=== PATIENT | female | born 1970 | race African-American/Black ===

== ENCOUNTER 2016-11-29 15:11 | Inpatient (IN) ==
[2016-11-29] MEDS ORDERED: ASPIRIN 325 MG TABLET PO STA (15:36)
[2016-11-29] MEDS ORDERED: ENOXAPARIN 100 MG/ML SYRINGE SUBCUT STA (15:36)
--- NOTE | 2016-11-29 15:40 | EKG Report ---
Stationary ECG Study [facility] ER Test Date: 11/29/2016 3:26:07 PM Pat Name: WILMER MCCORMICK Department: Room: Gender: F Figure Clerk: : 1970 Requested by: Samson Kate Order Number: [id number] Reading MD: CHINYERE BROWN Intervals [place] Rate: 71 P: 36 [place]: 152 QRS: 13 QRSD: 97 T: 47 QT: 376 QTc: 398 Interpretive Statements SINUS RHYTHM Electronically Signed On 11-29-16 21:20:11 CDT by CHINYERE BROWN [id number]
--- NOTE | 2016-11-29 15:42 | Emergency Department Note ---
Josafat Steinberg Manpreet, am scribing for, and in the presence of, Samson Oseguera MD 15:40. Ana Rosa Steinberg Phillip K, MD, personally performed the services described in this documentation, ascribed by Armando Maurice in my presence, and it is both accurate and complete 542 . Arrival - Arrival ED Nursing Triage Note: c/o left sided chest pain onset 1415pm. Describes as sharp pain. +shortness of breath. +nausea. Also reports increased blood pressure. Mode of Arrival: Ambulatory Limitations: No Limitations Source: Patient - History of Present Illness Onset (ago): hour(s) Consistency: constant Severity: mild Date of Last Menstrual Period: hyst <Samson Oseguera - Last Filed: 11/29/16 15:42> <Kodak Rivera - Last Filed: 11/29/16 17:49> - Arrival Chief Complaint: Chest Pain Stated Complaint: CHEST PAIN, SOB. BP 170/106 - History of Present Illness HPI Narrative: Pt is a 45 y/o female who presents to the ED with CC of sharp CP onset at 1400 at work. Pt states the pain initially radiated into her left upper shoulder but does not currently. Pt also c/o nausea, dry cough, SOB, and the pain is worse upon movement. Pt had a heart catheterization in 2014 at [facility] which she does not know the results of. Pt has a PMHx of HTN and takes her medications at night. Pt has not taken her HTN medications today and has not taken a ASA today. Pt c/o chills and being cold but denies any fever. No other pains/ complaints reported to the ED. (Armando Maurice) Pt is a 45 y/o female who presents to the ED with CC of sharp CP onset at 1400 at work. Pt states the pain initially radiated into her left upper shoulder but does not currently. Pt also c/o nausea, dry cough, SOB, and the pain is worse upon movement. Pt had a heart catheterization in 2014 at [facility] which she does not know the results of. Pt has a PMHx of HTN and takes her medications at night. Pt has not taken her HTN medications today and has not taken a ASA today. Pt c/o chills and being cold but denies any fever. No other pains/ complaints reported to the ED. (Samson Oseguera) Allergies/Adverse Reactions: Allergies Allergy/AdvReac Type Severity Reaction Status Date / Time acetaminophen [From [place]] Allergy Unknown HIVES Verified 11/29/16 15:18 hydrocodone [From [place]] Allergy Unknown HIVES Verified 11/29/16 15:18 Penicillins Allergy Unknown HIVES Verified 11/29/16 15:18 Home Medications: Home Medications Medication Instructions Recorded Confirmed Type Ranitidine Tab [Zantac Tab] 150 mg PO BEDTIME 11/29/16 11/29/16 History Valsartan/Hctz 160-12.5 [Diovan 1 tablet PO BEDTIME 11/29/16 11/29/16 History Hct 160-12.5] Review of System - Review of System 12 point system: reviewed and no additional remarkable complaints except as stated - Review of System Constitutional: Present: chills. Absent: diaphoresis, fever Respiratory: Present: cough, respiratory distress. Absent: wheezing Cardiovascular: Present: chest pain Gastrointestinal: Present: nausea. Absent: abdominal pain, vomiting, diarrhea Musculoskeletal: Absent: arm pain, back pain Neurological: Absent: headache, numbness, paresthesias <Samson Oseguera - Last Filed: 11/29/16 15:42> Medical,Surgical,& Family Hx - Medical History Cardio: History of: Cardiac Dysrhythmia, Hypertension, Cardiovascular Problems Neurology: History of: Migraine Respiratory: History of: Pulmonary Hypertension Gastrointestinal: History of: Diverticulitis/ Diverticulosis, GERD - Surgical History Cardiac Surgeries: Sugical HX of: Cardiac Catheterization Abdominal Surgeries: Surgical HX of: Hernia Repair Reproductive Surgeries: Surgical HX of;: Hysterectomy (FULL) - Family History Family History: Reports;: Family Cancer (MOTHER-OVARIAN), Family Diabetes ( GRANDMOTHER), Family Hypertension (MOTHER), Family Stroke (FATHER) - Social History Smoking Status: Never smoker Frequency of Alcohol Use: None Type of Drug Use: None <Samson Oseguera - Last Filed: 11/29/16 15:42> Exam - General General appearance: alert, in no apparent distress - Head Head exam: Present: atraumatic, normocephalic, normal inspection - Eye Eye exam: Present: normal appearance, PERRL, EOMI - ENT ENT exam: Present: normal exam, normal oropharynx, mucous membranes moist, TM's normal bilaterally - Neck Neck exam: Present: normal inspection, full ROM, trachea midline - Chest Chest inspection: Present: normal inspection, symmetric chest wall rise, tenderness (Upper anterior Chest wall tenderness) - Respiratory Respiratory exam: Present: normal lung sounds bilaterally. Absent: accessory muscle use, respiratory distress - Cardiovascular Cardiovascular exam: Present: regular rate, normal rhythm, normal heart sounds. Absent: murmur, rubs, gallop - Abdominal Exam Abdominal exam: Present: soft, normal bowel sounds. Absent: distention - Extremities Exam Extremities exam: Present: normal inspection, full ROM. Absent: tenderness - Back Exam Back exam: Present: normal inspection, full ROM. Absent: tenderness - Neurological Exam Neurological exam: Present: alert, oriented X3, CN II-XII intact, reflexes normal - Psychiatric Psychiatric exam: Present: normal affect, normal mood - Skin Skin exam: Present: warm, dry, intact, normal color. Absent: pallor <Samson Oseguera - Last Filed: 11/29/16 15:42> Vital Signs: Vital Signs Temperature 98.7 F 11/29/16 15:31 Pulse Rate 83 11/29/16 15:31 Respiratory Rate 18 11/29/16 15:31 Blood Pressure 196/123 11/29/16 15:31 O2 Sat by Pulse Oximetry 99 11/29/16 15:15 Course <Samson Oseguera - Last Filed: 11/29/16 15:42> - Consultations Time: 17:44 <Kodak Rivera - Last Filed: 11/29/16 17:49> - Consultations Consultation #1: Hospitalist will admit patient (Kodak Rivera) Results - EKG EKG results: interpreted by MUNA NERI, sinus rhythm <Samson Oseguera - Last Filed: 11/29/16 15:42> - Labs CBC & BMP: 11/29/16 15:25 11/29/16 15:25 <Kodak Rivera - Last Filed: 11/29/16 17:49> Disposition <Samson Oseguera - Last Filed: 11/29/16 15:42> Case discussed with: patient, patient's family Time of Disposition: 17:49 <Kodak Rivera - Last Filed: 11/29/16 17:49> Clinical Impression: Chest pain, Atypical chest pain Disposition: Still a Patient Condition: Stable
[2016-11-29] MEDS ORDERED: ONDANSETRON 4 MG/2 ML VIAL IV STA (15:48)
[2016-11-29] MEDS ORDERED: ONDANSETRON 4 MG/2 ML VIAL ONE (15:49)
[2016-11-29] MEDS ORDERED: ENOXAPARIN 100 MG/ML SYRINGE SUBCUT ONE (15:49)
[2016-11-29] MEDS ORDERED: ASPIRIN 325 MG TABLET ONE (15:49)
[2016-11-29 15:51] LABS: Basophils % 0.4 % (0.0-0.8); Eosinophils # 0.1 10*3/uL (0.0-0.87); Eosinophils % 2.1 % (0.00-10.9); Hematocrit 39.5 VOL% (35.7-47.0); Hemoglobin 12.8 GM/DL (12.0-16.0); Immature Granulocytes % 0.3 %; Immature Granulocytes Absolute 0.02 #; Lymphocytes % 29.8 % (21.3-54.2); Mean Corpuscular HGB Conc 32.4 GM/DL (32-36); Mean Corpuscular Hemoglobin 27 PG (27-34); Mean Corpuscular Volume 82.3 FL (87-102); Mean Platelet Volume 10.4 FL (9.6-12.0); Monocytes # 0.4 10*3/uL (0.11-0.8); Neutrophils # 4.1 10*3/uL (1.4-7.4); Neutrophils % 61.4 % (38.7-73.9); Platelet Count 267 T/CUMM (130-400); Red Cell Distribution Width 14.6 % (9.3-17.3); White Blood Count 6.7 T/CUMM (4-12)
--- NOTE | 2016-11-29 16:05 | XRay Report ---
XR chest 1V portable Indication: Chest pain Comparison: 24 December 2015 Findings: The heart and mediastinum are normal in size and configuration. The pulmonary vascularity is normal in caliber. No lung infiltrates, effusions, pneumothorax or other abnormality is demonstrated. Impression: Normal chest x-ray PROCEDURE INTERPRETED AT [facility] DEPARTMENT OF RADIOLOGY Final Report Signed by: Dr. Alexys Lu
[2016-11-29 16:12] LABS: Alanine Aminotransferase 18 U/L (13-56); Albumin 3.9 G/DL (3.4-5.0); Alkaline Phosphatase 83 U/L (45-117); Aspartate Amino Transferase 12 U/L (0-37); Bilirubin,Total < 0.39 MG/DL (0.2-1.0); Blood Urea Nitrogen 13 MG/DL (7-18); Calcium 9.6 MG/DL (8.5-10.1); Glucose 96 MG/DL (74-106); Magnesium 2.3 MG/DL (1.8-2.4); Osmolality,Calculated 278.4 MOS/KG (273-304); Potassium 4.1 MMOL/L (3.5-5.1); Sodium 140 MMOL/L (136-145); Total Protein 7.6 G/DL (6.4-8.3)
[2016-11-29 18:05] LABS: Apearance,Urine CLEAR (Clear); Bilirubin,Urine Negative (Negative); Blood, Urine Small mg/dL (Negative); Glucose,Urine (UA) Negative (Negative); Ketones,Urine Negative (Negative); Mucus,Urine Occasional /LPF (Occasional); Nitrite,Urine Negative (Negative); Protein,Urine Negative; RBC,Urine 1 /HPF (0-4); Squamous Epithelial Cell,Urine Occasional /HPF (0-10); Urine Color Yellow (Yellow); Urine Specific Gravity 1.019 (1.001-1.035); Urine Urobilinogen < 2.0 EU/DL (0.2-1.0); WBC,Urine 1 /HPF (0-6)
[2016-11-29] MEDS ORDERED: ONDANSETRON 4 MG/2 ML VIAL IV PRN (18:13)
--- NOTE | 2016-11-29 18:24 | Hospitalist History & Physical ---
Assessment and Plan - Time spent with patient Time spent with patient: Greater than 30 minutes (1) Atypical chest pain Status: Acute Assessment and plan: Admit to monitored bed. Cardiac enzymes negative on admission. Trend troponin and EKGs. Supportive therapy. Consult cardiology. Current Visit: Yes (2) Pulmonary hypertension Status: Resolved Assessment and plan: Patient reports that she does have a history of pulmonary hypertension per heart catheterization in 2014. She notes that she has been instructed to undergo a right heart catheterization to further investigate this. She has not done so yet. Current Visit: No History of Present Illness Chief complaint: chest pain History of present illness: Ms. Alexander is a 45 year old -[place] female with a past medical history significant for hypertension, pulmonary hypertension and GERD who presents to the ED today with complaints of chest pain having onset today around 2 PM. Patient notes that she has been experiencing chest pain off and on for the last week with associated fatigue. She reports that today while sitting at her desk at work she began to have left-sided chest pain which she describes as "pins and needles" that progressed to a "grabbing sensation". Patient states that she checked her blood pressure with a wrist cuff and noticed that it was elevated. She then consulted the school nurse who checked her blood pressure manually and found it to be elevated with a systolic > 170. She was then transported to the [facility] ED. She noted that the pain had subsided on admission with 1 aspirin and Lovenox shot. She does confirm that, while walking to the bathroom to provide a urine sample, she did experience chest pressure again that radiates to her left arm and through to her left scapula. Patient denies headache, blurry vision, shortness of breath, nausea vomiting, numbness or tingling, lower extremity edema. Cardiac enzymes at this time are negative. Chest x-ray is negative. This case has been discussed with both Dr. Rivera, ER physician, as well as Dr. Dye, admitting physician, and the patient will be admitted to the hospital medicine service for further evaluation and treatment. CODE STATUS was discussed; patient is a full code. Home medications have been reviewed and reconciled. Home Medications Medication Instructions Recorded Confirmed Type Ranitidine Tab [Zantac Tab] 150 mg PO BEDTIME 11/29/16 11/29/16 History Valsartan/Hctz 160-12.5 [Diovan 1 tablet PO BEDTIME 11/29/16 11/29/16 History Hct 160-12.5] Allergies Allergy/AdvReac Type Severity Reaction Status Date / Time acetaminophen [From [place]] Allergy Unknown HIVES Verified 11/29/16 15:18 hydrocodone [From [place]] Allergy Unknown HIVES Verified 11/29/16 15:18 Penicillins Allergy Unknown HIVES Verified 11/29/16 15:18 Medical,Surgical,& Family Hx - Medical History Cardio: History of: Cardiac Dysrhythmia, Hypertension, Cardiovascular Problems Neurology: History of: Migraine Respiratory: History of: Pulmonary Hypertension Gastrointestinal: History of: Diverticulitis/ Diverticulosis, GERD - Surgical History Cardiac Surgeries: Sugical HX of: Cardiac Catheterization Abdominal Surgeries: Surgical HX of: Hernia Repair Reproductive Surgeries: Surgical HX of;: Hysterectomy (FULL) - Family History Family History: Reports;: Family Cancer (MOTHER-OVARIAN), Family Diabetes ( GRANDMOTHER), Family Hypertension (MOTHER), Family Stroke (FATHER) - Social History Smoking Status: Never smoker Frequency of Alcohol Use: None Type of Drug Use: None Marital Status: Single Lives With:: Children Functional capacity: independent ambulation 12 point system: reviewed and no additional remarkable complaints except as stated Exam - Constitutional Vitals: Period Temp Pulse Resp BP Sys/Sweeney Pulse Ox Last 24 Hr 98.7 F-98.7 F 73-88 16-18 129-196/85-123 97-100 Exam: General appearance: normal weight, no acute distress - Head Head exam: Present: normocephalic, atraumatic - Eye Eye exam: Present: EOMI. Absent: conjunctival injection, nystagmus Pupils: Present: IVET, normal accommodation - ENT ENT exam: Present: normal exam, normal external ear exam - Neck Neck exam: Present: normal inspection. Absent: lymphadenopathy, tenderness, thyromegaly - Respiratory Respiratory exam: Present: clear to auscultation bilaterally. Absent: rales, rhonchi, wheezes - Cardiovascular Cardiovascular exam: Present: regular rate and rhythm. Absent: carotid bruit, gallop, rubs - GI/Abdominal GI/Abdominal exam: Present: normal bowel sounds. Absent: ascites, distended, mass - Extremities Exam Extremities exam: Present: normal inspection, normal capillary refill. Absent: edema - Back Exam Back exam: Absent: CVA tenderness (L), CVA tenderness (R) - Neurological Exam Neurological exam: Present: alert, oriented X3, CN II-XII intact, reflexes normal - Psychiatric Psychiatric exam: Present: normal affect, normal mood - Skin Skin exam: Present: normal color, warm, dry Results - Labs CBC & BMP: 11/29/16 15:25 11/29/16 15:25 Lab Results: I have reviewed the past 24 hour labs - EKG EKG results: interpreted by ERMD - Diagnostic Findings Procedure: CT: image reviewed by me, report reviewed by me
[2016-11-29] MEDS: FAMOTIDINE 20 MG TABLET PO SCH (21:19)
[2016-11-29] MEDS: VALSARTAN/HCTZ 160-12.5 MG TABLET PO SCH (21:19)
--- NOTE | 2016-11-29 23:34 | EKG Report ---
Stationary ECG Study [facility] Test Date: 11/29/2016 11:32:37 PM Pat Name: WILMER MCCORMICK Department: Room: 540 Gender: F Manager City: [place] : 1970 Requested by: Samson Kate Order Number: [id number] Juan MD: GUANAKO PADRON Intervals [place] Rate: 70 P: 40 [place]: 151 QRS: 10 QRSD: 110 T: 43 QT: 404 QTc: 424 Interpretive Statements SINUS RHYTHM Electronically Signed On 11-30-16 10:37:17 CDT by GUANAKO PADRON [email or web address]
[2016-11-30] MEDS ORDERED: MORPHINE 2 MG/1 ML SYRINGE IV ONE (00:07)
[2016-11-30 06:19] LABS: Basophils % 0.4 % (0.0-0.8); Eosinophils # 0.1 10*3/uL (0.0-0.87); Eosinophils % 2.5 % (0.00-10.9); Hematocrit 37.4 VOL% (35.7-47.0); Hemoglobin 12.1 GM/DL (12.0-16.0); Immature Granulocytes % 0.2 %; Immature Granulocytes Absolute 0.01 #; Lymphocytes % 42.3 % (21.3-54.2); Mean Corpuscular HGB Conc 32.4 GM/DL (32-36); Mean Corpuscular Hemoglobin 27 PG (27-34); Mean Corpuscular Volume 82.6 FL (87-102); Mean Platelet Volume 10.7 FL (9.6-12.0); Monocytes # 0.4 10*3/uL (0.11-0.8); Monocytes % 7.4 % (1.7-12.7); Neutrophils # 2.2 10*3/uL (1.4-7.4); Neutrophils % 47.2 % (38.7-73.9); Platelet Count 229 T/CUMM (130-400); Red Blood Count 4.53 MC/CUMM (3.8-5.5); Red Cell Distribution Width 14.6 % (9.3-17.3); White Blood Count 4.7 T/CUMM (4-12)
--- NOTE | 2016-11-30 06:33 | EKG Report ---
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
[2016-11-30 06:59] LABS: Calcium 8.9 MG/DL (8.5-10.1); Osmolality,Calculated 279.3 MOS/KG (273-304)
[2016-11-30 07:03] LABS: Cholesterol 198 MG/DL (50-200); HDL Cholesterol 61 MG/DL (40-60); Risk Ratio 3.25; Triglycerides 48 MG/DL (2-150); Troponin I Only < 0.015 NG/ML (0.00-0.045); VLDL CHOLESTEROL 9.6 MG/DL
[2016-11-30] MEDS: PANTOPRAZOLE 40 MG TABLET PO SCH ×2 (07:55→08:05)
--- NOTE | 2016-11-30 08:31 | EKG Report ---
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
[2016-11-30] MEDS: ASPIRIN CHEW 81 MG TABLET PO SCH (11:11)
[2016-11-30] MEDS: amLODIPine 5 MG TABLET PO SCH (11:11)
--- NOTE | 2016-11-30 13:12 | EKG Report ---
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
--- NOTE | 2016-11-30 13:29 | Cardiology Consult Note ---
Sobia Steinberg April RN, am scribing for, and in the presence of, Jose Lanza MD 13:29. Assessment and Plan - Time spent with patient Time spent with patient: Greater than 30 minutes (Due to assessment, planning, documentation, medication review) (1) Chest pain Status: Acute Assessment and plan: EKG has been stable and troponins are negative. We will schedule her for left and right heart cath tomorrow to look at her coronaries as well as to assess her pulmonary pressures Current Visit: Yes (2) Pulmonary hypertension Status: Chronic Assessment and plan: She has been told she has pulmonary hypertension in the past. We will schedule for left and right heart cath tomorrow. Current Visit: Yes (3) HTN (hypertension) Status: Acute Assessment and plan: Her home medication of Diovan HCT has been continued. We will add Norvasc 5 mg daily. Will continue to monitor her blood pressures. Current Visit: Yes History of Present Illness - Data of Consult Patient: known to practice within the last 3 years Consult date: 11/29/16 Requesting Physician: Manny Aguilar - Consult Narrative Reason for consult: Chest pain History of present illness: Innersole Maker: Dr. Grande at [facility], she has seen Dr. Henriquez for a second opinion Ms. Alexander is a 45 year old female with a history of pulmonary hypertension, sinus tachycardia, reflux, and hernia. Dr. Henriquez's note in 2016 indicates that she had a left and right heart catheterization on December 14, [address] Grande. It showed a pulmonary artery pressure of 35/16 mmHg. All of her coronary arteries were reported as normal at that time. She had a stress test done July 29, 2015 that was clinically and electrically negative. Echocardiogram done July 28, 2015 with ejection fraction of 60%. Other surgeries include hysterectomy, sinus, left knee, and umbilical hernia repair. Family history is positive for mother with heart disease hypertension and cancer , father with stroke and hypertension, and sister with hypertension. She reports she is a lifetime non-smoker. Ms. Alexander has been short of breath that gets worse with exertion and fatigue for the last week. Yesterday she developed pain in her left chest that radiated in her left arm. She described as a tightness but also felt like " pins and needles". This came on at rest and she rates a 9 on a scale of 1-10. She noted no triggers or alleviators. Her blood pressure was noted to be elevated at 170/100. She presented to the emergency department for further evaluation. At that time her pain was relieved. She had a wart on the mcdaniels to give a urine sample and her pain did return. Her blood pressure was elevated on admission at 196/123. Troponin has been negative 3. EKG on admission showed sinus rhythm with heart rate of 71, no indication of acute MD. Chest x- ray was read as normal. This morning she is resting in bed. She continues to have the chest pain she rates it a 7 on a scale of 1-10. The pain is reproducible to palpation. She is also complaining of some dizziness. EKG this morning showed sinus rhythm with heart rate of 63, no acute changes. We will obtain an echocardiogram. We will also start her on a baby aspirin daily and add Norvasc 5 mg daily to her medication regimen. I have discussed in detail the particulars of this case and I have examined the patient and reviewed the patient's chart both current and old. I was directly involved in the patient's evaluation and management and I completely agree with Ann Marie Ramsay RN regarding this patient's evaluation and treatment plan. CC: Cass aHrvey MD - Home Medications and Allergies Home Medications: Home Medications Medication Instructions Recorded Confirmed Type Ranitidine Tab [Zantac Tab] 150 mg PO BEDTIME 11/29/16 11/29/16 History Valsartan/Hctz 160-12.5 [Diovan 1 tablet PO BEDTIME 11/29/16 11/29/16 History Hct 160-12.5] Allergies/Adverse Reactions: Allergies Allergy/AdvReac Type Severity Reaction Status Date / Time acetaminophen [From [place]] Allergy Unknown HIVES Verified 11/29/16 15:18 hydrocodone [From [place]] Allergy Unknown HIVES Verified 11/29/16 15:18 Penicillins Allergy Unknown HIVES Verified 11/29/16 15:18 - Constitutional Constitutional: Present: as per HPI - EENT Eyes: Present: blurry vision, requires corrective lense Ears: Present: tinnitus. Absent: decreased hearing, ear pain Nose, mouth and throat: Present: headache(s), neck pain. Absent: dysphagia, epistaxis - Cardiovascular Cardiovascular: Present: chest pain at rest, chest pain with activity, dyspnea, dyspnea on exertion, radiating jaw, neck or arm pain, lightheadedness, palpitations. Absent: edema, orthopnea - Respiratory Respiratory: Present: cough, dyspnea, dyspnea on exertion. Absent: hemoptysis, wheezing - Gastrointestinal Gastrointestinal: Present: nausea, vomiting. Absent: abdominal pain, constipation, diarrhea, hematemesis, hematochezia, melena - Genitourinary Genitourinary: Absent: dysuria, hematuria - Musculoskeletal Musculoskeletal: Absent: back pain, limited range of motion - Neurological Neurological: Present: dizziness, headache(s). Absent: confusion, frequent falls, syncope - Psychiatric Psychiatric: Absent: anxiety, depression - Endocrine Endocrine: Present: fatigue - Hematologic/Lymphatic Hematologic/Lymphatic: Absent: easy bleeding, easy bruising Medical,Surgical,& Family Hx - Medical History Cardio: History of: Cardiac Dysrhythmia, Hypertension Neurology: History of: Migraine Respiratory: History of: Pulmonary Hypertension Gastrointestinal: History of: Diverticulitis/ Diverticulosis, GERD - Surgical History Cardiac Surgeries: Sugical HX of: Cardiac Catheterization Abdominal Surgeries: Surgical HX of: Hernia Repair Reproductive Surgeries: Surgical HX of;: Hysterectomy (FULL) Orthopedic Surgeries: Surgical HX of;: Orthopedic Surgery (left knee surgery) Additional Surgical History: Sinus - Family History Family History: Reports;: Family Cancer (MOTHER-OVARIAN), Family Heart Disease ( Mother), Family Hypertension (MOTHER, father, sister), Family Stroke (FATHER) - Social History Smoking Status: Never smoker Have you smoked in the last 12 months: No Frequency of Alcohol Use: None Type of Drug Use: None Functional capacity: independent ambulation Physical Examination Vital Signs Temp Pulse Resp BP Pulse Ox 98.7 F 83 18 196/123 99 11/29/16 15:15 11/29/16 15:15 11/29/16 15:15 11/29/16 15:15 11/29/16 15:15 General: Present: Appears Well, No Apparent Distress HEENT: Present: PERRL, Mucus Membranes Moist Neck: Present: Supple Neck, Midline Trachea, No Bruit Cardiac: Present: Reg Rate and Rhythm, No Murmur Lungs: Present: Normal Breath Sounds, No Wheeze, Rales, Rhonchi Neuro: Absent: Resting Tremor, Essential Tremor Abdomen: Present: Soft, Active Bowel Sounds, Non-Tender. Absent: Distended Skin: Absent: Rash, Suspicious Lesions Musculoskeletal: Present: No Pain, Normal Range of Motion Extremities: Present: No Edema, Normal Upper Extr. Pulses, Normal Lower Extr. Pulses Result/EKG - Labs CBC & BMP: 11/30/16 05:17 11/30/16 05:17 Lab Results: I have reviewed the past 24 hour labs Labs: Laboratory Results - last 24 hr 11/29/16 11/29/16 11/29/16 15:25 15:25 15:25 WBC 6.7 RBC 4.80 Hgb 12.8 Hct 39.5 MCV 82.3 L MCH 27 MCHC 32.4 RDW 14.6 Plt Count 267 MPV 10.4 Neut % (Auto) 61.4 Lymph % (Auto) 29.8 [place] % (Auto) 6.0 Eos % (Auto) 2.1 Baso % (Auto) 0.4 Neut # (Auto) 4.1 Lymph # (Auto) 2.0 [place] # (Auto) 0.4 Eos # (Auto) 0.1 Baso # (Auto) 0.0 Immature Gran % 0.3 Nucleated RBC % 0.0 Immature Gran # 0.02 Nucleated RBCs # 0.00 Immature Plt Fraction 0.0 Sodium 140 Potassium 4.1 Chloride 105 Carbon Dioxide 32 Anion Gap 7.1 BUN 13 Creatinine 1.00 GFR Calculation 94 BUN/Creatinine Ratio 13.00 Glucose 96 Calculated Osmolality 278.4 Calcium 9.6 Magnesium 2.3 Total Bilirubin < 0.39 AST 12 ALT 18 Alkaline Phosphatase 83 Troponin I < 0.015 Total Protein 7.6 Albumin 3.9 Globulin 3.7 H Albumin/Globulin Ratio 1.0 L Triglycerides Cholesterol LDL Cholesterol VLDL Cholesterol HDL Cholesterol Heart Disease Risk Ratio Free T4 TSH 3rd Generation Urine Color Urine Appearance Urine pH Ur Specific [place] Urine Protein Urine Glucose (UA) Urine Ketones Urine Blood Urine Nitrate Urine Bilirubin Urine Urobilinogen Urine Leukocytes Urine RBC Urine WBC Ur Squamous Epith Cells Urine Mucus Ur Culture Indicated? 11/29/16 11/29/16 11/29/16 15:25 15:25 17:49 WBC RBC Hgb Hct MCV MCH MCHC RDW Plt Count MPV Neut % (Auto) Lymph % (Auto) [place] % (Auto) Eos % (Auto) Baso % (Auto) Neut # (Auto) Lymph # (Auto) [place] # (Auto) Eos # (Auto) Baso # (Auto) Immature Gran % Nucleated RBC % Immature Gran # Nucleated RBCs # Immature Plt Fraction Sodium Potassium Chloride Carbon Dioxide Anion Gap BUN Creatinine GFR Calculation BUN/Creatinine Ratio Glucose Calculated Osmolality Calcium Magnesium Total Bilirubin AST ALT Alkaline Phosphatase Troponin I Total Protein Albumin Globulin Albumin/Globulin Ratio Triglycerides Cholesterol LDL Cholesterol VLDL Cholesterol HDL Cholesterol Heart Disease Risk Ratio Free T4 1.23 TSH 3rd Generation 0.713 Urine Color Yellow Urine Appearance Clear Urine pH 5.0 Ur Specific [place] 1.019 Urine Protein Negative Urine Glucose (UA) Negative Urine Ketones Negative Urine Blood Small Urine Nitrate Negative Urine Bilirubin Negative Urine Urobilinogen < 2.0 H Urine Leukocytes Negative Urine RBC 1 Urine WBC 1 Ur Squamous Epith Cells Occasional Urine Mucus Occasional Ur Culture Indicated? Not indicated 11/29/16 11/30/16 11/30/16 21:27 05:17 05:17 WBC 4.7 RBC 4.53 Hgb 12.1 Hct 37.4 MCV 82.6 L MCH 27 MCHC 32.4 RDW 14.6 Plt Count 229 MPV 10.7 Neut % (Auto) 47.2 Lymph % (Auto) 42.3 [place] % (Auto) 7.4 Eos % (Auto) 2.5 Baso % (Auto) 0.4 Neut # (Auto) 2.2 Lymph # (Auto) 2.0 [place] # (Auto) 0.4 Eos # (Auto) 0.1 Baso # (Auto) 0.0 Immature Gran % 0.2 Nucleated RBC % 0.0 Immature Gran # 0.01 Nucleated RBCs # 0.00 Immature Plt Fraction 0.0 Sodium 141 Potassium 4.0 Chloride 105 Carbon Dioxide 30 Anion Gap 10.0 BUN 12 Creatinine 0.90 GFR Calculation 107 BUN/Creatinine Ratio 13.00 Glucose 87 Calculated Osmolality 279.3 Calcium 8.9 Magnesium Total Bilirubin AST ALT Alkaline Phosphatase Troponin I < 0.015 Total Protein Albumin Globulin Albumin/Globulin Ratio Triglycerides Cholesterol LDL Cholesterol VLDL Cholesterol HDL Cholesterol Heart Disease Risk Ratio Free T4 TSH 3rd Generation Urine Color Urine Appearance Urine pH Ur Specific [place] Urine Protein Urine Glucose (UA) Urine Ketones Urine Blood Urine Nitrate Urine Bilirubin Urine Urobilinogen Urine Leukocytes Urine RBC Urine WBC Ur Squamous Epith Cells Urine Mucus Ur Culture Indicated? 11/30/16 05:17 WBC RBC Hgb Hct MCV MCH MCHC RDW Plt Count MPV Neut % (Auto) Lymph % (Auto) [place] % (Auto) Eos % (Auto) Baso % (Auto) Neut # (Auto) Lymph # (Auto) [place] # (Auto) Eos # (Auto) Baso # (Auto) Immature Gran % Nucleated RBC % Immature Gran # Nucleated RBCs # Immature Plt Fraction Sodium Potassium Chloride Carbon Dioxide Anion Gap BUN Creatinine GFR Calculation BUN/Creatinine Ratio Glucose Calculated Osmolality Calcium Magnesium Total Bilirubin AST ALT Alkaline Phosphatase Troponin I < 0.015 Total Protein Albumin Globulin Albumin/Globulin Ratio Triglycerides 48 Cholesterol 198 LDL Cholesterol 130.0 VLDL Cholesterol 9.6 HDL Cholesterol 61 H Heart Disease Risk Ratio 3.25 Free T4 TSH 3rd Generation Urine Color Urine Appearance Urine pH Ur Specific [place] Urine Protein Urine Glucose (UA) Urine Ketones Urine Blood Urine Nitrate Urine Bilirubin Urine Urobilinogen Urine Leukocytes Urine RBC Urine WBC Ur Squamous Epith Cells Urine Mucus Ur Culture Indicated? - Diagnostic Findings Procedure: Chest x-ray: report reviewed by me - EKG EKG results: interpreted by me EKG shows: sinus rhythm Pool Steinberg Wesley, MD, personally performed the services described in this documentation, ascribed by Ann Marie Ramsay RN in my presence, and it is both accurate and complete [id number] .
--- NOTE | 2016-11-30 16:48 | Hospitalist Progress Note ---
Hospitalist: Subjective Interval history: Patient reports that her symptoms usually come on on exertion mostly shortness of breath and sometimes chest discomfort. Exam - Constitutional Vitals: Period Temp Pulse Resp BP Sys/Sweeney Pulse Ox Last 24 Hr 97.3 F-98.4 F 65-94 16-20 104-169/65-111 93-98 Exam: General: [No Acute Distress] HEENT: [Normocephalic, atraumatic, Extra ocular movements intact] Neck: [Supple, No JVD] Chest: [Clear to auscultation B/L] CV: [S1 + S2 audible without murmur, gallop or rub] Abd: [soft, NT, Non-distended, BS +] Ext: [No edema] Skin: [No purpura, bruising or rash] Rheumatologic: [No Joint deformities] Neurologic: [Awake and alert] Results - Labs CBC & BMP: 11/30/16 05:17 11/30/16 05:17 - Impressions Assessment and Plan: Chest pain/pulmonary hypertension Status: Acute Assessment and plan: Patient is going for a right and left heart catheterization in the morning. Cardiac enzymes have been negative. Current Visit: Yes
[2016-11-30] MEDS: FAMOTIDINE 20 MG TABLET PO SCH (21:44)
[2016-11-30] MEDS: VALSARTAN/HCTZ 160-12.5 MG TABLET PO SCH (21:44)
[2016-11-30] MEDS: MORPHINE 2 MG/1 ML SYRINGE IV PRN (22:15)
[2016-12-01 05:27] LABS: Basophils % 0.5 % (0.0-0.8); Eosinophils # 0.1 10*3/uL (0.0-0.87); Eosinophils % 2.3 % (0.00-10.9); Hematocrit 40.1 VOL% (35.7-47.0); Hemoglobin 13.1 GM/DL (12.0-16.0); Immature Granulocytes % 0.2 %; Immature Granulocytes Absolute 0.01 #; Lymphocytes # 2.4 10*3/uL (1.4-4.0); Lymphocytes % 39.3 % (21.3-54.2); Mean Corpuscular HGB Conc 32.7 GM/DL (32-36); Mean Corpuscular Hemoglobin 27 PG (27-34); Mean Corpuscular Volume 81.7 FL (87-102); Mean Platelet Volume 10.8 FL (9.6-12.0); Monocytes # 0.5 10*3/uL (0.11-0.8); Monocytes % 7.9 % (1.7-12.7); Neutrophils % 49.8 % (38.7-73.9); Platelet Count 256 T/CUMM (130-400); Red Blood Count 4.91 MC/CUMM (3.8-5.5); Red Cell Distribution Width 14.4 % (9.3-17.3)
[2016-12-01 06:29] LABS: Calcium 9.5 MG/DL (8.5-10.1); Osmolality,Calculated 278.5 MOS/KG (273-304); Potassium 4.6 MMOL/L (3.5-5.1)
[2016-12-01] MEDS ORDERED: DIAZEPAM 5 MG TABLET PO ONE (07:10)
[2016-12-01] MEDS ORDERED: diphenhydrAMINE CAP 50 MG CAPSULE PO ONE (07:11)
[2016-12-01] MEDS: amLODIPine 5 MG TABLET PO SCH ×2 (07:31→08:31)
[2016-12-01] MEDS: ASPIRIN CHEW 81 MG TABLET PO SCH ×2 (07:31→08:31)
[2016-12-01] MEDS ORDERED: MIDAZOLAM 2 MG/2 ML VIAL ONE (07:48)
[2016-12-01] MEDS ORDERED: fentaNYL 100 MCG/2 ML VIAL ONE (07:48)
[2016-12-01] MEDS: PANTOPRAZOLE 40 MG TABLET PO SCH (08:31)
--- NOTE | 2016-12-01 09:03 | Cardiac Catheterization ---
Date of Procedure:: 12/01/16 Pre-op Diagnosis: Patient with palpitations chest discomfort history of questionable portal hypertension for right and left heart catheterization and intervention if indicated Post-op diagnosis: same Procedure: Procedures performed: Right heart catheterization Oxygen saturation measurements Cardiac output by thermodilution technique Left heart catheterization Coronary arteriography Left ventriculography Femoral sheath angiography After obtaining informed consent the patient was brought to the [facility] with a right groin was prepped and draped in the usual sterile manner. Using intravenous sedation and local anesthesia a needle was inserted into the right femoral artery and a 6 [place] sheath was placed without difficulty. A separate needle stick was made to the right femoral vein and a 7 [place] sheath was placed without difficulty. A [place]Vicente catheter was advanced under fluoroscopy to the superior vena cava where oxygen saturation measurements were obtained. This catheter then was positioned using balloon flow to the main pulmonary artery. Oxygen saturations again were obtained with the catheter tip in the main pulmonary artery. This catheter then was connected to hemodynamic monitoring and pressures were measured in the pulmonary capillary wedge position and in the main pulmonary artery. Cardiac outputs were then obtained using the thermodilution technique. After completion of cardiac output measurements, the catheter was pulled back from the main pulmonary artery into the right ventricle where right ventricular pressures were measured. This catheter then was pulled back into the right atrium where pressures were measured and then this catheter was removed. A Kirk left coronary catheter was advanced over a guidewire through the arterial sheath to the ascending aorta under fluoroscopy. The left main coronary artery was engaged and multiple angiograms of the left coronary was undertaken in multiple views. After adequate angiograms of the left coronary were obtained this catheter was withdrawn and an AMRM right coronary catheter was advanced over a guidewire under fluoroscopic control the ascending aorta where angiography of the right coronary artery was undertaken in multiple views. After adequate angiograms of the right coronary artery were obtained this catheter was withdrawn and a pigtail ventriculographic catheter was advanced over a guidewire to fluoroscopic control to the ascending aorta where it was then passed across the aortic valve where intraventricular hemodynamics were measured. A ventriculogram was undertaken at this point in the CORREA projection. After completion of ventriculography this catheter was pulled back from the ventricle to the aorta under hemodynamic monitoring and removed. At this point patient underwent femoral sheath angiography which demonstrated anatomy appropriate for [Mynx closure]. Good hemostasis was obtained and the patient was transferred back to the [facility] having suffered no significant immediate complications. Hemodynamics: Please see the accompanying hemodynamic data sheet. PA pressures were 32/11 with a mean of 17. Wedge pressures were 8 mmHg. Right atrial pressures were 3. Cardiac output measured 5.8 L/min. No significant oxygen saturation step up from SVC to pulmonary artery was noted. Coronary arteriography: Left coronary artery: The left main coronary artery is well-developed and free of significant obstructing lesions. The circumflex coronary is a large nondominant vessel that possesses no significant lesions to its course. The branches of the circumflex likewise are free of significant obstructing lesions. The left anterior descending coronary artery is a very large vessel that extends around the apex of the ventricle. The LAD possesses no significant lesions throughout its course. There is a proximal diagonal branch which is a large and free of significant obstructing lesions. The LAD and its remaining branches are free of significant obstructing lesions. Right coronary artery: The right coronary artery is large vessel that is dominant and is free of significant obstructing lesions. The PDA and posterolateral branches likewise are free of significant obstructing lesions. Left ventriculography: After injection of contrast left ventricle is noted normal size with normal contractility. Mitral and aortic structures are noted to be free of significant abnormality by ventriculography. Right femoral sheath angiography: After injection of contrast in the right femoral arterial sheath it is noted be of normal caliber and enters above the bifurcation. The distal iliac, common femoral and bifurcation appear to be free of significant obstructing lesions based on this limited angiographic study. Conclusions: Angiographically no evidence of significant fixed coronary obstruction. Normal left ventricular size and function. Only very minimally elevated resting right-sided pressures Normal end-diastolic pressures at rest Mynx closure right femoral arteriotomy site Discussion and recommendations: the patient presents with chest discomfort. She has now undergone evaluation demonstrating no evidence of significant fixed coronary obstruction. Her PA pressures are minimally elevated. She'll continue risk factor modification and our plan will be to evaluate for other etiologies of the patient's discomfort. Findings have been reviewed with the patient's family. Surgeon / Physician: Jose Lanza - Medications / Follow-up
[2016-12-01] MEDS ORDERED: SODIUM CHLORIDE 0.45% 1,000 ML IV SCH (09:30)
[2016-12-01] MEDS ORDERED: LIDOCAINE 1%/EPI INJ 20 ML VIAL ONE (10:18)
[2016-12-01] MEDS ORDERED: HEPARIN/NACL 0.9% 2 UNITS/ML 1,000 ML IV ONE (10:18)
[2016-12-01] MEDS: traMADol 50 MG TABLET PO PRN ×2 (10:47→16:26)
--- NOTE | 2016-12-01 16:19 | Hospitalist Progress Note ---
Hospitalist: Subjective Interval history: Patient was admitted with chest pain she is status post heart cath. Denies any chest pain or shortness of breath today Exam - Constitutional Vitals: Period Temp Pulse Resp BP Sys/Sweeney Pulse Ox Last 24 Hr 97.6 F-98.7 F 68-96 18-20 102-142/64-92 92-100 Exam: General: [No Acute Distress] HEENT: [Normocephalic, atraumatic, Extra ocular movements intact] Neck: [Supple, No JVD] Chest: [Clear to auscultation B/L] CV: [S1 + S2 audible without murmur, gallop or rub] Abd: [soft, NT, Non-distended, BS +] Ext: [No edema] Skin: [No purpura, bruising or rash] Rheumatologic: [No Joint deformities] Neurologic: [Awake and alert] Results - Labs CBC & BMP: 12/01/16 04:51 12/01/16 04:51 - Impressions Assessment and Plan: Chest pain Status: Acute Assessment and plan: She had atypical chest pain, patient had a right and left heart catheterization did not show any gross abnormalities. Discharge plan to home in the morning. Current Visit: Yes Quality Measures - VTE Contraindication to Pharmacological VTE Prophylaxis: High Risk of Bleeding Specialty Discharge - Follow Up or Referrals Follow up with: Jose Lanza MD [Physician] - 2 Weeks (for leg check up )
--- NOTE | 2016-12-01 17:04 | ECHO Report ---
Yessenia Alexander Exam Date: 11/30/2016 09:39 Referring Physician: Technologist: Dara Presley Age: 45 Ht (in): 67 Wt (lb): 214 Gender: F Exam Location: [facility] Echo Indications: Chest pain, pulmonary HTN, HTN, GERD BP: 118 / 70 HR: 74 Rhythm: Sinus Technical Quality: Good IMPRESSIONS Normal left ventricular cavity size. Mild - moderate concentric left ventricular hypertrophy. Grade I/IV diastolic dysfunction (abnormal relaxation filling pattern), normal to mildly elevated filling pressures. Normal right ventricular size. Normal right atrial size. Moderately increased left atrial size. Morphologically normal mitral valve. The aortic valve is trileaflet and has normal motion. Morphologically normal tricuspid valve. Trace tricuspid valve regurgitation. Morphologically normal pulmonic valve. Trace pulmonary valve regurgitation. No pericardial effusion. Normal size aortic root and proximal ascending aorta. MEASUREMENTS (Male / Female) Normal Values 2D ECHO LV Diastolic Diameter PLAX 3.3 cm 4.2 - 5.9 / 3.9 - 5.3 cm LV Systolic Diameter PLAX 1.8 cm LV Fractional Shortening PLAX 44.3 % IVS Diastolic Thickness 1.7 cm 0.6 - 1.0 / 0.6 - 0.9 cm LVPW Diastolic Thickness 1.2 cm 0.6 - 1.0 / 0.6 - 0.9 cm Aortic Root Diameter 3.2 cm LA Systolic Diameter LX 3.4 cm 3.0 - 4.0 / 2.7 - 3.8 cm DOPPLER TR Peak Velocity 228.0 cm/s TR Peak Gradient 20.8 mmHg FINDINGS Left Ventricle Normal left ventricular cavity size. Mild - moderate concentric left ventricular hypertrophy. Grade I/IV diastolic dysfunction (abnormal relaxation filling pattern), normal to mildly elevated filling pressures. Left ventricular ejection fraction is estimated at 55-60% Right Ventricle Normal right ventricular size. Right Atrium Normal right atrial size. Left Atrium Moderately increased left atrial size. Mitral Valve Morphologically normal mitral valve. Aortic Valve The aortic valve is trileaflet and has normal motion. Tricuspid Valve Morphologically normal tricuspid valve. Trace tricuspid valve regurgitation. Pulmonic Valve Morphologically normal pulmonic valve. Trace pulmonary valve regurgitation. Pericardium No pericardial effusion. Aorta Normal size aortic root and proximal ascending aorta. Jose Lanza MD (Electronically Signed) Final Date: 01 December 2016 17:03
[2016-12-01] MEDS: MORPHINE 2 MG/1 ML SYRINGE IV PRN (17:18)
[2016-12-01] MEDS: FAMOTIDINE 20 MG TABLET PO SCH (20:25)
[2016-12-01] MEDS: VALSARTAN/HCTZ 160-12.5 MG TABLET PO SCH (20:25)
--- NOTE | 2016-12-02 08:29 | Cardiology Progress Note ---
Assessment and Plan (1) Chest pain Status: Acute Assessment and plan: EKG has been stable and troponins are negative. We will schedule her for left and right heart cath tomorrow to look at her coronaries as well as to assess her pulmonary pressures 12/02: Patient is stable post catheterization. She can be discharged to follow- up with me in 2 weeks. Current Visit: Yes (2) Pulmonary hypertension Status: Chronic Assessment and plan: She has been told she has pulmonary hypertension in the past. We will schedule for left and right heart cath tomorrow. Current Visit: Yes (3) HTN (hypertension) Status: Acute Assessment and plan: Her home medication of Diovan HCT has been continued. We will add Norvasc 5 mg daily. Will continue to monitor her blood pressures. Current Visit: Yes Cardiology - PN: Subj Interval history: Patient is stable post catheterization. Doing well. She had mildly elevated's pulmonary arterial pressures without evidence of significant occlusive coronary disease normal LV function. I think she is without significant structural heart disease and our plan will be to have the patient back to see me in 2 weeks to review review her cath site. We will discuss at that point whether she is having significant palpitations to the point we will order further rhythm surveillance. Exam (Progress Note) - Constitutional Vitals: Period Temp Pulse Resp BP Sys/Sweeney Pulse Ox Last 24 Hr 97.6 F-98.7 F 68-81 18-20 99-142/51-92 92-100 Exam: General:no acute distress. alert and oriented, mood and affect are normal HEENT: no new lesions, sclerae are clear, mouth and pharynx benign Neck: supple, trachea midline, no JVD noted Lungs: no rales ronchi or wheeze is noted. pt comfortable without accesory muscle use to assist with breathing CV: RRR no murmur rub or gallop is noted. Abd: soft and nontender, BSNA, no masses. Ext: no cyanosis, clubbing or edema Neuro: grossly intact without focal neurologic deficit. Result/EKG - Labs CBC & BMP: 12/01/16 04:51 12/01/16 04:51 Quality Measures - VTE Contraindication to Pharmacological VTE Prophylaxis: High Risk of Bleeding Specialty Discharge - Follow Up or Referrals Follow up with: Jose Lanza MD [Physician] - 2 Weeks (for leg check up )
[2016-12-02] MEDS: amLODIPine 5 MG TABLET PO SCH (08:39)
[2016-12-02] MEDS: ASPIRIN CHEW 81 MG TABLET PO SCH (08:39)
[2016-12-02] MEDS: PANTOPRAZOLE 40 MG TABLET PO SCH (08:39)
--- NOTE | 2016-12-02 13:06 | Discharge Summary ---
<Alon Agarwal - Last Filed: 12/02/16 13:03> Hospital Course - Hospital Course Hospital Course: 45-year-old -Italian female who presented to the ED on 11/29/2016 with complaints of left-sided chest pain. Patient was seen in the ED with stable EKG and negative troponins. Given patient's history she was admitted to the hospital medicine service for further evaluation and treatment. Cardiology was consulted and decided to proceed with a left heart catheterization with evaluation of pulmonary pressures. She had mildly elevated pulmonary arterial pressures without evidence of significant occlusive coronary disease and normal LV function. Cardiology did not find any significant structural heart disease. During her stay, the patient was continued on Diovan HCT with the addition of Norvasc 5 mg daily. She has responded appropriately to medication and is now stable for discharge at this time. Patient to follow-up with Dr. Lanza in 2 weeks post left and right heart catheterization. She should follow with her primary care physician in 1-2 weeks. Specialty Discharge - Follow Up or Referrals Follow up with: Jose Lanza MD [Physician] - 2 Weeks (for leg check up ) Discharge Plan - Discharge Data Disposition: Disch To Home/Self Care Condition at Discharge: Stable Discharge Diet: heart healthy Activity: resume usual activities as tolerated Hygiene: no restrictions Weight Bearing at Discharge: full weight bearing Driving: no restrictions Contact your physician if you experience:: fever over 101, Redness or swelling, Shortness of breath, Bleeding - Discharge Medications New amLODIPine [Norvasc] 5 mg PO DAILY #30 tablet Continue Ranitidine Tab [Zantac Tab] 150 mg PO BEDTIME Valsartan/Hctz 160-12.5 [Diovan Hct 160-12.5] 1 tablet PO BEDTIME - Follow Up or Referral Follow Up: Jose Lanza MD [Physician] - 2 Weeks (for leg check up ) - Forms/Instructions Instructions: Heart Healthy Diet (GEN), Coronary Artery Disease in Women (GEN) Exam - Constitutional Vitals: Period Temp Pulse Resp BP Sys/Sweeney Pulse Ox Last 24 Hr 97.5 F-98.4 F 71-83 18-20 99-120/51-66 92-98 General appearance: over weight - Head Head exam: Present: normocephalic, atraumatic - Eye Eye exam: Present: EOMI Pupils: Present: IVET - ENT ENT exam: Present: normal exam - Neck Neck exam: Present: normal inspection - Respiratory Respiratory exam: Present: clear to auscultation bilaterally - Cardiovascular Cardiovascular exam: Present: regular rate and rhythm - GI/Abdominal GI/Abdominal exam: Present: normal bowel sounds, soft - Extremities Exam Extremities exam: Present: normal inspection, normal capillary refill, full ROM - Neurological Exam Neurological exam: Present: alert, oriented X3, CN II-XII intact - Psychiatric Psychiatric exam: Present: normal affect, normal mood - Skin Skin exam: Present: normal color, warm, dry Discharge Results Procedures and tests throughout hospitalization: Pending Orders 12/01/16 08:30 CL heart Routine DS: Provider Date of admission: 11/29/16 18:13 Primary care physician: Blake Benavidez MD Attending physician on admission: Sudeep Dye MD Consults: 11/29/16 18:49 Consult to Physician [CONS] Routine Comment: chest pain Consulting Provider: Brice Bowman Person Notified: Jah Date Notified: 11/30/16 Time Notified: 07:54 12/01/16 09:04 Consult to Cardiac Rehabilitation [CONS] Routine Reason for Cardiac Rehabilitation: Risk Factor Modification Other Consult Comment: Evaluate and recommend Discharging clinician: Alon Agarwal MD <Manny Aguilar - Last Filed: 12/02/16 15:03> Hospital Course - Time spent with patient Time with patient DS: Greater than 30 minutes Diagnosis - Discharge Diagnosis (1) Atypical chest pain Status: Acute (2) Pulmonary hypertension Status: Chronic DS: Provider Expected date of discharge: 12/02/16
--- NOTE | 2016-12-02 15:01 | EKG Report ---
Stationary ECG Study [facility] Test Date: 12/02/2016 2:59:13 PM Pat Name: WILMER MCCORMICK Department: Room: 540 Gender: F [employer] Manager: ASHUTOSH : 1970 Requested by: Alon Agarwal Order Number: [id number] Reading MD: CHINYERE BROWN Intervals [place] Rate: 81 P: 37 NC: 136 QRS: 34 QRSD: 100 T: 45 QT: 382 QTc: 419 Interpretive Statements SINUS RHYTHM Electronically Signed On 12-02-16 21:47:15 CDT by CHINYERE BROWN [email or web address]
--- NOTE | 2016-12-02 15:54 | Event Note ---
This patient was slated for discharge today as we are preparing to send her home she developed her symptoms again of feeling weak and dizzy and noted be able to see the form very well. I the face of the discharge. Put the patient on the monitor. Patient will be reassessed again tomorrow. In the meantime I elevated the grinder needle tip will respond follow-up with the patient as an outpatient to see her again while she is here. I intend to see the patient again later this evening too.
[2016-12-02] MEDS: VALSARTAN/HCTZ 160-12.5 MG TABLET PO SCH (20:52)
[2016-12-02] MEDS: FAMOTIDINE 20 MG TABLET PO SCH (20:52)
[2016-12-03] MEDS: amLODIPine 5 MG TABLET PO SCH (08:32)
[2016-12-03] MEDS: PANTOPRAZOLE 40 MG TABLET PO SCH (09:06)
[2016-12-03] MEDS: ASPIRIN CHEW 81 MG TABLET PO SCH (09:06)
--- NOTE | 2016-12-03 09:26 | Cardiology Progress Note ---
Assessment and Plan (1) Chest pain Status: Acute Assessment and plan: EKG has been stable and troponins are negative. We will schedule her for left and right heart cath tomorrow to look at her coronaries as well as to assess her pulmonary pressures 12/02: Patient is stable post catheterization. She can be discharged to follow- up with me in 2 weeks. Current Visit: Yes (2) Pulmonary hypertension Status: Chronic Assessment and plan: She has been told she has pulmonary hypertension in the past. We will schedule for left and right heart cath tomorrow. Current Visit: Yes (3) HTN (hypertension) Status: Acute Assessment and plan: Her home medication of Diovan HCT has been continued. We will add Norvasc 5 mg daily. Will continue to monitor her blood pressures. Current Visit: Yes (4) Dizziness Status: Acute Assessment and plan: I see no identifiable cardiac issue that can explain her dizziness. My plan will be to have neurology see the patient in consultation. Current Visit: Yes Cardiology - PN: Subj Interval history: Patient had an episode of dizziness yesterday. I see no identifiable cardiac issue that can explain her dizziness. Her blood pressure and vital signs are stable. I have nothing further to add to the evaluation it has taken place and neurologic evaluation may be of benefit. I will sign off please consult as needed Exam (Progress Note) - Constitutional Vitals: Period Temp Pulse Resp BP Sys/Sweeney Pulse Ox Last 24 Hr 96.4 F-98.6 F 77-88 16-20 106-123/59-80 93-100 Exam: General:no acute distress. alert and oriented, mood and affect are normal HEENT: no new lesions, sclerae are clear, mouth and pharynx benign Neck: supple, trachea midline, no JVD noted Lungs: no rales ronchi or wheeze is noted. pt comfortable without accesory muscle use to assist with breathing CV: RRR no murmur rub or gallop is noted. Abd: soft and nontender, BSNA, no masses. Ext: no cyanosis, clubbing or edema Neuro: grossly intact without focal neurologic deficit. Result/EKG - Labs CBC & BMP: 12/01/16 04:51 12/01/16 04:51 Labs: Laboratory Results - last 24 hr 12/02/16 14:54 POC Glucose 103 Quality Measures - VTE Contraindication to Pharmacological VTE Prophylaxis: High Risk of Bleeding Specialty Discharge - Follow Up or Referrals Follow up with: Jose Lanza MD [Physician] - 2 Weeks (for leg check up )
--- NOTE | 2016-12-03 13:57 | Hospitalist Progress Note ---
Assessment and Plan (1) Hypotension Status: Acute Assessment and plan: These are quite episodic not needing any attention at this point. I am was working her up for possibility of carcinoid. This is carcinoid and a muscle broken past the hepatic barriers. Current Visit: Yes Qualifiers: Hypotension type: unspecified hypotension type Qualified Code(s): I95.9 - Hypotension, unspecified (2) Abnormal weight loss Status: Acute Assessment and plan: Patient is having an abdominal pelvic CT scan also do a chest x-ray none has been done in the last 3 months. Current Visit: Yes (3) Tachycardia Status: Chronic Assessment and plan: Associated with hypotension. This likely reflected tachycardia Current Visit: No (4) HTN (hypertension) Status: Acute Assessment and plan: On medication Current Visit: Yes Hospitalist: Subjective Interval history: Patient is seen interviewed and examined and chart has been reviewed slightly still complaining of this funny sensation of being drained of more energy. Is walking to her bed sometimes to the bathroom and coming back this is due to. He says he developed sudden drop in blood pressure she started sweating blood sugar was normal EKG was none unremarkable. My question is whether this patient has a carcinoid. Try to obtain CT scan of the abdomen and look at the liver. Also do a 24-hour urine 5 hydroxy-IAA. Exam - Constitutional Vitals: Period Temp Pulse Resp BP Sys/Sweeney Pulse Ox Last 24 Hr 96.4 F-98.6 F 77-90 16-20 108-123/59-85 93-100 General appearance: over weight - Head Head exam: Present: normal inspection, normocephalic, atraumatic - Eye Eye exam: Present: EOMI Pupils: Present: IVET - Respiratory Respiratory exam: Present: clear to auscultation bilaterally - Cardiovascular Cardiovascular exam: Present: regular rate and rhythm - Extremities Exam Extremities exam: Present: full ROM - Neurological Exam Neurological exam: Present: alert, oriented X3, CN II-XII intact - Psychiatric Psychiatric exam: Present: normal affect, normal mood - Skin Skin exam: Present: normal color, warm, dry Results - Labs CBC & BMP: 12/01/16 04:51 12/01/16 04:51 Lab Results: I have reviewed the past 24 hour labs Quality Measures - VTE Contraindication to Pharmacological VTE Prophylaxis: High Risk of Bleeding Specialty Discharge - Follow Up or Referrals Follow up with: Jose Lanza MD [Physician] - 2 Weeks (for leg check up )
[2016-12-03 14:48] LABS: Free T4 (Free Thyroxine) 1.11 NG/DL (0.76-1.46); Thyroid Stimulating Hormone 1.05 uIU/ml (0.358-3.74)
[2016-12-03] MEDS: FAMOTIDINE 20 MG TABLET PO SCH (20:46)
[2016-12-03] MEDS: VALSARTAN/HCTZ 160-12.5 MG TABLET PO SCH (20:46)
[2016-12-03] MEDS ORDERED: clonazePAM 0.5 MG TABLET PO ONE (21:00)
[2016-12-04 08:30] LABS: Basophils % 0.6 % (0.0-0.8); Eosinophils # 0.1 10*3/uL (0.0-0.87); Eosinophils % 1.5 % (0.00-10.9); Hematocrit 41.9 VOL% (35.7-47.0); Hemoglobin 13.6 GM/DL (12.0-16.0); Immature Granulocytes % 0.2 %; Immature Granulocytes Absolute 0.01 #; Lymphocytes # 1.6 10*3/uL (1.4-4.0); Lymphocytes % 28.9 % (21.3-54.2); Mean Corpuscular HGB Conc 32.5 GM/DL (32-36); Mean Corpuscular Hemoglobin 27 PG (27-34); Mean Corpuscular Volume 81.8 FL (87-102); Mean Platelet Volume 10.5 FL (9.6-12.0); Monocytes # 0.4 10*3/uL (0.11-0.8); Monocytes % 7.6 % (1.7-12.7); Neutrophils # 3.3 10*3/uL (1.4-7.4); Neutrophils % 61.2 % (38.7-73.9); Platelet Count 252 T/CUMM (130-400); Red Blood Count 5.12 MC/CUMM (3.8-5.5); Red Cell Distribution Width 14.3 % (9.3-17.3); White Blood Count 5.4 T/CUMM (4-12)
--- NOTE | 2016-12-04 08:40 | CT Report ---
CT abdomen w con Indication: Abnormal weight loss, hypotensive events Comparison: None Technique: Multiple axial tomographic images of the abdomen were obtained after the administration of 100 cc Omnipaque 350 intravenous contrast. Findings: Mild dependent change of the lungs present. No worrisome focal hepatic abnormality. The gallbladder is grossly unremarkable. The pancreas is grossly unremarkable. The spleen is grossly unremarkable. The bilateral adrenal glands are grossly unremarkable. The bilateral kidneys are grossly unremarkable. No evidence of gastrointestinal obstruction. Visualized vasculature grossly unremarkable. Visualized osseous and surrounding soft tissue structures demonstrate no acute abnormality. IMPRESSION: No convincing CT evidence of significant intra-abdominal abnormality. The CT exam was performed using one or more of the following dose reduction techniques: Automated exposure control, adjustment of the mA and/or kV according to patient size, or use of iterative reconstruction technique. PROCEDURE INTERPRETED AT [facility] DEPARTMENT OF RADIOLOGY Final Report Signed by: Dr Hardy Hart
[2016-12-04 09:01] LABS: Albumin 3.7 G/DL (3.4-5.0); Bilirubin,Total 0.6 MG/DL (0.2-1.0); Calcium 9.2 MG/DL (8.5-10.1); Magnesium 2.3 MG/DL (1.8-2.4); Osmolality,Calculated 273.8 MOS/KG (273-304); Phosphorous 3.4 MG/DL (2.5-4.9); Potassium 4.4 MMOL/L (3.5-5.1)
--- NOTE | 2016-12-04 09:14 | Hospitalist Progress Note ---
Assessment and Plan (1) Abnormal weight loss Status: Acute Assessment and plan: CT abdomen and pelvis performed the same was essentially benign for any acute intra-abdominal processes. No worrisome focal hepatic abnormality is noted. The origin of the patient's weight loss is concerning. 24-hour urine specimen remains in progress. In addition, will obtain CT chest to investigate possible abnormal areas attributing to the patient's current status. We will consult neurology to evaluate. Current Visit: Yes (2) Atypical chest pain Status: Acute Assessment and plan: Heart catheterization was essentially unremarkable. No further episodes of atypical chest pain has been verbalized. We will monitor closely. Current Visit: Yes Hospitalist: Subjective Interval history: Patient seen and examined; chart reviewed. No significant overnight events reported per staff. Patient still reports extreme fatigue and dizziness upon arising; however no definite causative factor has been identified. Exam - Constitutional Vitals: Period Temp Pulse Resp BP Sys/Sweeney Pulse Ox Last 24 Hr 97.4 F-98.3 F 71-91 16-20 96-131/56-85 96-100 General appearance: normal weight, no acute distress - Head Head exam: Present: normal inspection, normocephalic, atraumatic - Eye Eye exam: Present: EOMI. Absent: conjunctival injection Pupils: Present: IVET, normal accommodation - ENT ENT exam: Present: normal exam, normal external ear exam, normal oropharynx - Neck Neck exam: Present: normal inspection. Absent: lymphadenopathy, meningismus, tenderness, thyromegaly - Respiratory Respiratory exam: Present: clear to auscultation bilaterally. Absent: rales, rhonchi, stridor, wheezes - Cardiovascular Cardiovascular exam: Present: regular rate and rhythm. Absent: carotid bruit, diastolic murmur, gallop, JVD, rubs, systolic murmur - GI/Abdominal GI/Abdominal exam: Present: normal bowel sounds, soft - Extremities Exam Extremities exam: Present: normal inspection, normal capillary refill, full ROM. Absent: edema - Back Exam Back exam: Present: normal inspection - Neurological Exam Neurological exam: Present: alert, oriented X3, CN II-XII intact - Psychiatric Psychiatric exam: Present: normal affect, normal mood - Skin Skin exam: Present: normal color, warm, dry Results - Labs CBC & BMP: 12/04/16 08:03 12/04/16 08:03 Lab Results: I have reviewed the past 24 hour labs Quality Measures - VTE Contraindication to Pharmacological VTE Prophylaxis: High Risk of Bleeding Specialty Discharge - Follow Up or Referrals Follow up with: Jose Lanza MD [Physician] - 2 Weeks (for leg check up )
[2016-12-04] MEDS: ASPIRIN CHEW 81 MG TABLET PO SCH (09:15)
[2016-12-04] MEDS: PANTOPRAZOLE 40 MG TABLET PO SCH (09:15)
[2016-12-04] MEDS: amLODIPine 5 MG TABLET PO SCH (09:16)
--- NOTE | 2016-12-04 12:06 | CT Report ---
CT of the chest with intravenous contrast. Indication: Weight loss. Shortness of breath. Axial images were obtained with sagittal and coronal reconstructions. 80 cc Omni 350. The thyroid gland is borderline enlarged. There is no supraclavicular or axillary lymphadenopathy. There is no hilar or mediastinal lymphadenopathy. The heart is normal in size. There is no pericardial or pleural effusion. The thoracic aorta is of normal caliber. The lung lerner are clear. Mild degenerative changes are present within the spinal column. Impression: Borderline prominence of the thyroid gland. The exam is otherwise unremarkable. The CT exam was performed using one or more of the following dose reduction techniques: Automated exposure control, adjustment of the mA and/or kV according to patient size, or use of iterative reconstruction technique. PROCEDURE INTERPRETED AT [facility] DEPARTMENT OF RADIOLOGY Final Report Signed by: Dr. Emily Lopez
--- NOTE | 2016-12-04 14:31 | Neurology Consult Note ---
History of Present Illness History of present illness: Ms. Alexander is a 45 year old -[place] female with a past medical history significant for hypertension, pulmonary hypertension and GERD who presents to the ED today with complaints of chest pain. Underwent cardiac cath. All the workup so far has been negative. Patient has been experiencing extreme tiredness for the last 2 weeks. Sugars give out so easily. She has been having difficulty performing ADLs at home. Patient reported that she had this kind of symptoms one time in 2014 and she was diagnosed with bronchitis back then. Her primary problem at this time is extreme tiredness and fatigability. Lab work looks okay. Thyroid function is normal. With these symptoms she is also complaining of lightheadedness whenever she tries to get up and walk. Home Medications Medication Instructions Recorded Confirmed Type Ranitidine Tab [Zantac Tab] 150 mg PO BEDTIME 11/29/16 11/29/16 History Valsartan/Hctz 160-12.5 [Diovan 1 tablet PO BEDTIME 11/29/16 11/29/16 History Hct 160-12.5] amLODIPine [Norvasc] 5 mg PO DAILY #30 tablet 12/02/16 Rx Allergies Allergy/AdvReac Type Severity Reaction Status Date / Time acetaminophen [From [place]] Allergy Unknown HIVES Verified 11/29/16 15:18 hydrocodone [From [place]] Allergy Unknown HIVES Verified 11/29/16 15:18 Penicillins Allergy Unknown HIVES Verified 11/29/16 15:18 12 point system: reviewed and no additional remarkable complaints except as stated Medical,Surgical,& Family Hx - Medical History Cardio: History of: Cardiac Dysrhythmia, Hypertension, Cardiovascular Problems Psychological: No history of: Anxiety Disorders, ADHD, Behavior Problems, Bipolar Disorder, Depression, Previous Suicide Attempt, Psychiatric/Substance Abuse Tx, Schizophrenia, Violent Behavior, Psychiatric Problems Neurology: History of: Migraine Respiratory: History of: Pulmonary Hypertension Gastrointestinal: History of: Diverticulitis/ Diverticulosis, GERD - Surgical History Cardiac Surgeries: Sugical HX of: Cardiac Catheterization Neurologic Surgeries: Patient denies: Neurologic Surgery Abdominal Surgeries: Surgical HX of: Hernia Repair Reproductive Surgeries: Surgical HX of;: Hysterectomy (FULL) Orthopedic Surgeries: Surgical HX of;: Orthopedic Surgery (left knee surgery) - Family History Family History: Reports;: Family Cancer (MOTHER-OVARIAN), Family Diabetes ( GRANDMOTHER), Family Heart Disease (Mother), Family Hypertension (MOTHER, father , sister), Family Stroke (FATHER) - Social History Smoking Status: Never smoker Frequency of Alcohol Use: None Type of Drug Use: None Exam - Constitutional Vitals: Period Temp Pulse Resp BP Sys/Sweeney Pulse Ox Last 24 Hr 97.6 F-98.3 F 71-91 16-20 96-131/56-82 95-98 Exam: GENERAL: Patient is in no acute distress. NECK: Neck is supple. There is no JVD. No carotid bruits present. No thyroid masses. CVS: First and second heart sounds are normal. There is no S3 present. Regular rate and rhythm. RESPIRATORY: Lungs are clear to auscultation without any rales or rhonchi. ABDOMEN: Soft and non-tender. Bowel sounds are present. There is no hepatosplenomegaly. EXT: There is no palpable edema. Peripheral pulses are present. Skin: No rashes Central Nervous system: General: Alert, awake and Oriented x 3 Speech: Fluent Comprehension: Intact and normal Facial expressions: Normal Cranial Nerves: CN1/Olfactory: Normal CN II/ Optic: Normal, Visual Finn unreliable CN III, and : IVET & EOMI CN V: Normal & intact CN VII: face is symmetric CNVIII: Normal CN XI/X/XI/XII: Intact and Normal Motor: Bulk and Tone is normal. Strength in the right 5/5 Strength in the left 5/5 Sensory: Grossly intact for all the modalities of PP, LT and temp sense Reflexes: 1+ and symmetrical Cerebellar function: Normal finger to nose and heel to bangura testing. Toes: Equivocal Gait: Able to get up and walk Results - Labs CBC & BMP: 12/04/16 08:03 12/04/16 08:03 Assessment and Plan (1) Muscle tiredness Status: Acute Assessment and plan: Etiology is unclear but differential would include central nervous system pathology such as MS or neuromuscular junction disorder or muscle disorder B12 folate CPK aldolase and ESR Thank you for the consult Current Visit: Yes (2) Lightheadedness Status: Acute Assessment and plan: MRI brain without contrast MRA [facility] [place] Current Visit: Yes Specialty Discharge - Follow Up or Referrals Follow up with: Jose Lanza MD [Physician] - 2 Weeks (for leg check up )
[2016-12-04] MEDS ORDERED: LORazepam 2 MG/1 ML VIAL IV ONE (15:12)
[2016-12-04 16:09] LABS: Folate 14.5 NG/ML (5.4-24.0)
--- NOTE | 2016-12-04 16:39 | Magnetic Resonance Report ---
Exam: MR head/brain wo con, Date: 12/04/2016 2:34 PM Comparison: None Indication: Dizziness Technical: 1.2 Mona magnet Axial T1 pre-and , ADC, DWI, FLAIR, gradient echo and FSE T2 Sagittal T1 precontrast, Coronal FSE T2 Contrast:0 cc Dotarem Findings: Exam reveals no acute ADC/ diffusion imaging.. The brainstem, cerebellum exhibit normal signal characteristics. The cerebral hemispheres exhibit normal signal characteristics. The corpus callosum is unremarkable. The seventh and eighth cranial nerves and cerebral pontine angles are intact. The pituitary gland, infundibulum and optic chiasm are intact. The paranasal sinuses exhibit normal signal characteristics. The mastoid sinuses are unremarkable. The globes and intra-and extraconal spaces are unremarkable. Impression: 1. 1. Normal MRI the brain Exam: MR angio head wo con (COW) Date: 12/04/2016 2:34 PM Indication: Dizziness Comparison: As above technical 3-D slab imaging and 3-D reproduction images were available for review. Exam was performed without contrast enhancement. Findings: The left vertebral artery is dominant. The right vertebral artery is small but patent. The A1 and A2 segment the M1 and M2 bifurcation trifurcation regions are intact. The posterior communicating arteries patent on the right. The posterior cerebral P1 and P2 segments are intact. Anterior communicating arteries patent the internal carotid arteries are unremarkable. The basilar artery is unremarkable. Impression: 1. No obvious aneurysm or intracranial stenosis or thrombus present. 2. Small right vertebral artery as compared to the left. PROCEDURE INTERPRETED AT [facility] DEPARTMENT OF RADIOLOGY Final Report Signed by: Dr. Demarcus Soto
[2016-12-04] MEDS: VALSARTAN/HCTZ 160-12.5 MG TABLET PO SCH (21:13)
[2016-12-04] MEDS: FAMOTIDINE 20 MG TABLET PO SCH (21:18)
[2016-12-05 06:29] LABS: Basophils % 0.5 % (0.0-0.8); Eosinophils # 0.1 10*3/uL (0.0-0.87); Eosinophils % 2.2 % (0.00-10.9); Hematocrit 39.6 VOL% (35.7-47.0); Hemoglobin 12.9 GM/DL (12.0-16.0); Immature Granulocytes % 0.2 %; Immature Granulocytes Absolute 0.01 #; Lymphocytes # 1.8 10*3/uL (1.4-4.0); Lymphocytes % 32.1 % (21.3-54.2); Mean Corpuscular HGB Conc 32.6 GM/DL (32-36); Mean Corpuscular Hemoglobin 27 PG (27-34); Mean Corpuscular Volume 81.5 FL (87-102); Mean Platelet Volume 10.7 FL (9.6-12.0); Monocytes # 0.3 10*3/uL (0.11-0.8); Monocytes % 5.7 % (1.7-12.7); Neutrophils # 3.2 10*3/uL (1.4-7.4); Neutrophils % 59.3 % (38.7-73.9); Platelet Count 242 T/CUMM (130-400); Red Blood Count 4.86 MC/CUMM (3.8-5.5); Red Cell Distribution Width 14.4 % (9.3-17.3); White Blood Count 5.5 T/CUMM (4-12)
[2016-12-05 07:01] LABS: Albumin 3.4 G/DL (3.4-5.0); Bilirubin,Total 0.9 MG/DL (0.2-1.0); Calcium 9.1 MG/DL (8.5-10.1); Magnesium 2.4 MG/DL (1.8-2.4); Osmolality,Calculated 285.1 MOS/KG (273-304); Phosphorous 4.2 MG/DL (2.5-4.9); Potassium 4.3 MMOL/L (3.5-5.1); Total Protein 6.5 G/DL (6.4-8.3)
--- NOTE | 2016-12-05 08:35 | Hospitalist Progress Note ---
<Wesley Malcolm - Last Filed: 12/05/16 08:32> Assessment and Plan (1) Abnormal weight loss Status: Acute Assessment and plan: CT abdomen and pelvis performed the same was essentially benign for any acute intra-abdominal processes. No worrisome focal hepatic abnormality is noted. The origin of the patient's weight loss is concerning. 24-hour urine specimen remains in progress. In addition, will obtain CT chest to investigate possible abnormal areas attributing to the patient's current status. We will consult neurology to evaluate. 11/04-patient was evaluated by neurology on yesterday. We appreciate the input. MRI and MRA on yesterday was essentially unremarkable. B12 was noted at 404 and folate 14.5. We will await neurology for further recommendations. Current Visit: Yes (2) Atypical chest pain Status: Acute Assessment and plan: Heart catheterization was essentially unremarkable. No further episodes of atypical chest pain has been verbalized. We will monitor closely. Current Visit: Yes Hospitalist: Subjective Interval history: Patient seen and examined; chart reviewed. No significant overnight events reported per staff. Patient was seen by neurology on yesterday and MRI/MRA was obtained. Exam - Constitutional Vitals: Period Temp Pulse Resp BP Sys/Sweeney Pulse Ox Last 24 Hr 97.2 F-98.2 F 78-90 18-19 114-136/60-89 95-98 General appearance: normal weight, no acute distress - Head Head exam: Present: normal inspection, normocephalic, atraumatic - Eye Eye exam: Present: EOMI. Absent: conjunctival injection Pupils: Present: IVET, normal accommodation - ENT ENT exam: Present: normal exam, normal external ear exam, normal oropharynx - Neck Neck exam: Present: normal inspection. Absent: lymphadenopathy, meningismus, thyromegaly - Respiratory Respiratory exam: Present: clear to auscultation bilaterally. Absent: rales, rhonchi, stridor, wheezes - Cardiovascular Cardiovascular exam: Present: regular rate and rhythm. Absent: carotid bruit, diastolic murmur, gallop, JVD, rubs, systolic murmur - GI/Abdominal GI/Abdominal exam: Present: normal bowel sounds, soft - Extremities Exam Extremities exam: Present: normal inspection, normal capillary refill, full ROM. Absent: edema - Back Exam Back exam: Present: normal inspection - Neurological Exam Neurological exam: Present: alert, oriented X3, CN II-XII intact - Psychiatric Psychiatric exam: Present: normal affect, normal mood - Skin Skin exam: Present: normal color, warm, dry Results - Labs CBC & BMP: 12/05/16 06:13 12/05/16 06:13 Lab Results: I have reviewed the past 24 hour labs Quality Measures - VTE Contraindication to Pharmacological VTE Prophylaxis: High Risk of Bleeding Specialty Discharge - Follow Up or Referrals Follow up with: Jose Lanza MD [Physician] - 2 Weeks (for leg check up ) <Ronald Bauer - Last Filed: 12/05/16 10:58> Hospitalist: Subjective Interval history: Patient underwent cardiac catheterization demonstrating normal coronary arteries. He is presently being followed by neurology. I agree with the assessment and plans of Wesley Malcolm NP. I would anticipate discharge tomorrow. Exam - Constitutional Vitals: Period Temp Pulse Resp BP Sys/Sweeney Pulse Ox Last 24 Hr 97.2 F-98.2 F 78-90 18-20 103-136/60-89 95-99 Results - Labs CBC & BMP: 12/05/16 06:13 12/05/16 06:13
[2016-12-05] MEDS: PANTOPRAZOLE 40 MG TABLET PO SCH (10:34)
[2016-12-05] MEDS: amLODIPine 5 MG TABLET PO SCH (10:34)
[2016-12-05] MEDS: ASPIRIN CHEW 81 MG TABLET PO SCH (10:34)
--- NOTE | 2016-12-05 14:57 | Neurology Progress Note ---
Neurology - PN : Subjective Interval history: Patient seems to be doing about the same/slightly better. All the workup including MRI of the brain, MRA [place], B12 folate TSH, CPK and ESR are all within normal limits. She is able to get up and walk. No evidence of a stroke, muscle disorder or nerve disorder Exam (Progress Note) - Constitutional Vitals: Period Temp Pulse Resp BP Sys/Sweeney Pulse Ox Last 24 Hr 97.2 F-98.1 F 78-90 18-20 103-136/60-89 95-99 Exam: GENERAL: Patient is in no acute distress. NECK: Neck is supple. There is no JVD. No carotid bruits present. No thyroid masses. CVS: First and second heart sounds are normal. There is no S3 present. Regular rate and rhythm. RESPIRATORY: Lungs are clear to auscultation without any rales or rhonchi. ABDOMEN: Soft and non-tender. Bowel sounds are present. There is no hepatosplenomegaly. EXT: There is no palpable edema. Peripheral pulses are present. Skin: No rashes Central Nervous system: General: Alert, awake and Oriented x 3 Speech: Fluent Comprehension: Intact and normal Facial expressions: Normal Cranial Nerves: CN1/Olfactory: Normal CN II/ Optic: Normal, Visual Finn unreliable CN III, and : IVET & EOMI CN V: Normal & intact CN VII: face is symmetric CNVIII: Normal CN XI/X/XI/XII: Intact and Normal Motor: Bulk and Tone is normal. Strength in the right 5/5 Strength in the left 5/5 Sensory: Grossly intact for all the modalities of PP, LT and temp sense Reflexes: 1+ and symmetrical Cerebellar function: Normal finger to nose and heel to bangura testing. Toes: Equivocal Gait: Able to get up and walk Results - Labs CBC & BMP: 12/05/16 06:13 12/05/16 06:13 Assessment and Plan (1) Muscle tiredness Status: Acute Assessment and plan: Probably will need evaluation as an outpatient for neuromuscular junctional disorder No further intervention/recommendation at this time Current Visit: Yes (2) Lightheadedness Status: Acute Assessment and plan: This could very well be due to medication side effects (amlodipine) Consider changing amlodipine to some other form of antihypertensive medication Defer this decision to PCP Sign off please call as needed Follow-up with me in 4 weeks Current Visit: Yes Quality Measures - VTE Contraindication to Pharmacological VTE Prophylaxis: High Risk of Bleeding Specialty Discharge - Follow Up or Referrals Follow up with: Jose Lanza MD [Physician] - 2 Weeks (for leg check up ) Jair Roberson MD [Physician] - 1 Month
--- NOTE | 2016-12-05 15:22 | Pulmonology Consult Note ---
Assessment and Plan (1) Dyspnea Status: Resolved Assessment and plan: The patient has shortness of breath on exertion and no obvious etiology. She may have had some asthmatic bronchitis in the past. Will check her PFTs. The sensation of difficulty getting air in is almost always psychosomatic. Current Visit: No (2) Pulmonary hypertension Status: Chronic Assessment and plan: She had a recent heart cath with no evidence of significant pulmonary hypertension. Current Visit: Yes (3) Atypical chest pain Status: Acute Assessment and plan: She has had vague chest pain and negative cardiac catheterization . Current Visit: Yes (4) HTN (hypertension) Status: Acute Assessment and plan: Her blood pressure has been quite stable lately. Current Visit: Yes (5) Muscle tiredness Status: Acute Assessment and plan: She is being evaluated by neurology. I suspect much of her symptoms are related to anxiety Current Visit: Yes History of Present Illness Chief complaint: Shortness of breath History of present illness: Ms. Alexander is a 45 year old black female that is a lifetime non-smoker and is actually been fairly healthy. She has a history of having hypertension and GE reflux with minimal pulmonary hypertension. She was previously evaluated for sleep apnea and only had primary snoring. She came in with 1 week of fatigue and the sensation of not being able to catch a deep breath. She has some vague chest pain. She has undergone a cardiac catheterization which was negative. She still has the sensation of not being able to catch a deep breath. She is never clearly had asthma but did try Symbicort one time. She was followed by Dr. Torres. She has had no evidence of previous pulmonary emboli or DVT. She is also been evaluated for fatigue. Home Medications Medication Instructions Recorded Confirmed Type Ranitidine Tab [Zantac Tab] 150 mg PO BEDTIME 11/29/16 11/29/16 History Valsartan/Hctz 160-12.5 [Diovan 1 tablet PO BEDTIME 11/29/16 11/29/16 History Hct 160-12.5] amLODIPine [Norvasc] 5 mg PO DAILY #30 tablet 12/02/16 Rx Allergies Allergy/AdvReac Type Severity Reaction Status Date / Time acetaminophen [From [place]] Allergy Unknown HIVES Verified 11/29/16 15:18 hydrocodone [From [place]] Allergy Unknown HIVES Verified 11/29/16 15:18 Penicillins Allergy Unknown HIVES Verified 11/29/16 15:18 - Constitutional Constitutional: Present: fatigue, weakness. Absent: chills, fever(s), weight loss - EENT Eyes: Absent: loss of vision Ears: Absent: decreased hearing Nose, mouth and throat: Absent: dysphagia, headache(s), sinus pressure - Cardiovascular Cardiovascular: Present: chest pain at rest, dyspnea on exertion, palpitations. Absent: chest pain with activity, edema - Respiratory Respiratory: Present: cough, wheezing, other (Says he had bronchitis one time.) . Absent: hemoptysis, pain on inspiration - Gastrointestinal Gastrointestinal: Absent: abdominal pain, change in bowel habits, dysphagia, nausea, vomiting - Genitourinary Genitourinary: Absent: difficulty urinating, dysuria, hematuria, urinary frequency - Musculoskeletal Musculoskeletal: Present: myalgias. Absent: arthralgias - Neurological Neurological: Absent: abnormal speech, focal weakness, paresthesias - Psychiatric Psychiatric: Present: anxiety Exam ([facility]) H&P - Constitutional Vitals: Period Temp Pulse Resp BP Sys/Sweeney Pulse Ox Last 24 Hr 97.2 F-98.1 F 78-90 18-20 103-136/60-89 95-99 General appearance: no acute distress (She looks comfortable and healthy.), over weight - Head Head exam: Present: normal inspection, normocephalic - Eye Eye exam: Present: EOMI. Absent: scleral icterus Pupils: Present: IVET - ENT ENT exam: Present: normal exam - Neck Neck exam: Present: normal inspection. Absent: lymphadenopathy, thyromegaly - Respiratory Respiratory exam: Present: clear to auscultation bilaterally. Absent: rhonchi, wheezes - Cardiovascular Cardiovascular exam: Present: regular rate and rhythm. Absent: gallop, JVD, systolic murmur - GI/Abdominal GI/Abdominal exam: Present: normal bowel sounds, soft. Absent: distended, organomegaly, tenderness - Extremities Exam Extremities exam: Absent: calf tenderness, edema - Back Exam Back exam: Present: normal inspection - Neurological Exam Neurological exam: Present: alert, oriented X3. Absent: motor sensory deficit - Psychiatric Psychiatric exam: Present: anxious - Skin Skin exam: Present: warm, dry. Absent: rash Medical,Surgical,& Family Hx - Medical History Cardio: History of: Cardiac Dysrhythmia, Hypertension, Cardiovascular Problems Psychological: No history of: Anxiety Disorders, ADHD, Behavior Problems, Bipolar Disorder, Depression, Previous Suicide Attempt, Psychiatric/Substance Abuse Tx, Schizophrenia, Violent Behavior, Psychiatric Problems Neurology: History of: Migraine Respiratory: History of: Pulmonary Hypertension Gastrointestinal: History of: Diverticulitis/ Diverticulosis, GERD - Surgical History Cardiac Surgeries: Sugical HX of: Cardiac Catheterization Neurologic Surgeries: Patient denies: Neurologic Surgery Abdominal Surgeries: Surgical HX of: Hernia Repair Reproductive Surgeries: Surgical HX of;: Hysterectomy (FULL) Orthopedic Surgeries: Surgical HX of;: Orthopedic Surgery (left knee surgery) - Family History Family History: Reports;: Family Cancer (MOTHER-OVARIAN), Family Diabetes ( GRANDMOTHER), Family Heart Disease (Mother), Family Hypertension (MOTHER, father , sister), Family Stroke (FATHER) - Social History Smoking Status: Never smoker Frequency of Alcohol Use: None Type of Drug Use: None Results - Labs CBC & BMP: 12/05/16 06:13 12/05/16 06:13 - Diagnostic Findings Procedure: Chest x-ray: image reviewed by me, report reviewed by me (Chest x- ray is clear), CT - chest: image reviewed by me, report reviewed by me (No signs of emboli or infiltrate) Quality Measures - VTE Contraindication to Pharmacological VTE Prophylaxis: High Risk of Bleeding Specialty Discharge - Follow Up or Referrals Follow up with: Jair Roberson MD [Physician] - 1 Month Jose Lanza MD [Physician] - 2 Weeks (for leg check up )
[2016-12-05] MEDS: VALSARTAN/HCTZ 160-12.5 MG TABLET PO SCH (20:13)
[2016-12-05] MEDS: FAMOTIDINE 20 MG TABLET PO SCH (20:19)
[2016-12-06] MEDS: traMADol 50 MG TABLET PO PRN (07:11)
--- NOTE | 2016-12-06 08:44 | Hospitalist Progress Note ---
<Wesley Malcolm - Last Filed: 12/06/16 08:40> Assessment and Plan (1) Abnormal weight loss Status: Acute Assessment and plan: CT abdomen and pelvis performed the same was essentially benign for any acute intra-abdominal processes. No worrisome focal hepatic abnormality is noted. The origin of the patient's weight loss is concerning. 24-hour urine specimen remains in progress. In addition, will obtain CT chest to investigate possible abnormal areas attributing to the patient's current status. We will consult neurology to evaluate. 12/05-patient was evaluated by neurology on yesterday. We appreciate the input. MRI and MRA on yesterday was essentially unremarkable. B12 was noted at 404 and folate 14.5. We will await neurology for further recommendations. 12/06-there has been no identifiable cause of the patient's abnormal weight loss. A full neurological and cardiac workup has been performed and was essentially unremarkable. Today, the patient is scheduled for pulmonary function test. The patient continues to verbalize increased heart rate and feelings of tiredness. I suspect that the symptoms that the patient is experiencing are manifesting from anxiety. We will start the patient on BuSpar 5 mg twice daily and Lexapro 5 mg at the hour of sleep. We will observe the patient tonight and assess for discharge appropriateness in the a.m. Current Visit: Yes (2) Atypical chest pain Status: Acute Assessment and plan: Heart catheterization was essentially unremarkable. No further episodes of atypical chest pain has been verbalized. We will monitor closely. 12/06-There has been no identifiable cause of the patient's chest pain and tachycardia. A full cardiac workup has been performed and was essentially unremarkable. Today, the patient is scheduled for pulmonary function test. The patient continues to verbalize increased heart rate and feelings of tiredness. I suspect that the symptoms that the patient is experiencing are manifesting from anxiety. We will start the patient on BuSpar 5 mg twice daily and Lexapro 5 mg at the hour of sleep. We will observe the patient tonight and assess for discharge appropriateness in the a.m. Current Visit: Yes Hospitalist: Subjective Interval history: Patient seen and evaluated; chart reviewed. No significant overnight events reported per staff. PFT scheduled this a.m. per pulmonology. Exam - Constitutional Vitals: Period Temp Pulse Resp BP Sys/Sweeney Pulse Ox Last 24 Hr 97.4 F-98.2 F 80-96 18-20 108-116/75-80 93-99 General appearance: normal weight, no acute distress - Head Head exam: Present: normal inspection, normocephalic, atraumatic - Eye Eye exam: Present: EOMI. Absent: conjunctival injection Pupils: Present: IVET, normal accommodation - ENT ENT exam: Present: normal exam, normal external ear exam, normal oropharynx - Neck Neck exam: Present: normal inspection. Absent: lymphadenopathy, meningismus, tenderness, thyromegaly - Respiratory Respiratory exam: Present: clear to auscultation bilaterally. Absent: rales, rhonchi, stridor, wheezes - Cardiovascular Cardiovascular exam: Present: regular rate and rhythm. Absent: carotid bruit, diastolic murmur, gallop, JVD, rubs, systolic murmur - GI/Abdominal GI/Abdominal exam: Present: normal bowel sounds, soft - Extremities Exam Extremities exam: Present: normal inspection, normal capillary refill, full ROM , edema - Back Exam Back exam: Present: normal inspection - Neurological Exam Neurological exam: Present: alert, oriented X3, CN II-XII intact - Psychiatric Psychiatric exam: Present: normal affect, normal mood - Skin Skin exam: Present: normal color, warm, dry Results - Labs CBC & BMP: 12/05/16 06:13 12/05/16 06:13 Lab Results: I have reviewed the past 24 hour labs Quality Measures - VTE Contraindication to Pharmacological VTE Prophylaxis: High Risk of Bleeding Specialty Discharge - Follow Up or Referrals Follow up with: Jair Roberson MD [Physician] - 1 Month Jose Lanza MD [Physician] - 2 Weeks (for leg check up ) <Ronald Bauer - Last Filed: 12/06/16 15:16> Hospitalist: Subjective Interval history: Patient continues to have multiple complaints including chest pain. She is undergone evaluation by cardiology, including a cardiac catheterization, and to steam table worker, one prior to admission and one during this admission. There has been no cause found for her complaints. It is my impression that her major problem is that of anxiety. I agree with the assessment and plans of nurse practitioner Wesley Malcolm. Exam - Constitutional Vitals: Period Temp Pulse Resp BP Sys/Sweeney Pulse Ox Last 24 Hr 97.4 F-98.2 F 80-96 18-20 108-115/63-80 93-99 Results - Labs CBC & BMP: 12/05/16 06:13 12/05/16 06:13
[2016-12-06] MEDS ORDERED: busPIRone 5 MG TABLET PO SCH (09:00)
[2016-12-06] MEDS ORDERED: LORazepam 2 MG/1 ML VIAL IV ONE (09:16)
[2016-12-06] MEDS ORDERED: LORazepam 2 MG/1 ML VIAL ONE (09:17)
--- NOTE | 2016-12-06 09:26 | EKG Report ---
Stationary ECG Study [facility] Test Date: 12/06/2016 9:28:15 AM Pat Name: WILMER MCCORMCIK Department: Room: 540 Gender: F Zinc Plater: JAZ : 1970 Requested by: Brenna Malcolm Order Number: [id number] Reading MD: GIRMA DILLARD Intervals [place] Rate: 79 P: 40 SC: 146 QRS: -9 QRSD: 88 T: 65 QT: 381 QTc: 416 Interpretive Statements SINUS RHYTHM at 79 bpm WNL Electronically Signed On 12-09-16 12:21:20 CDT by GIRMA DILLARD [email or web address]
[2016-12-06] MEDS: PANTOPRAZOLE 40 MG TABLET PO SCH (09:36)
[2016-12-06] MEDS: ASPIRIN CHEW 81 MG TABLET PO SCH (09:36)
[2016-12-06] MEDS: amLODIPine 5 MG TABLET PO SCH (09:36)
--- NOTE | 2016-12-06 09:45 | Discharge Summary ---
Hospital Course - Hospital Course Hospital Course: 45-year-old -Indian female who presented to the ED on 11/29/2016 with complaints of left-sided chest pain. Patient was seen in the ED with stable EKG and negative troponins. Given patient's history she was admitted to the hospital medicine service for further evaluation and treatment. Cardiology was consulted and decided to proceed with a left heart catheterization with evaluation of pulmonary pressures. She had mildly elevated pulmonary arterial pressures without evidence of significant occlusive coronary disease and normal LV function. Cardiology did not find any significant structural heart disease. During her stay, the patient was continued on Diovan HCT with the addition of Norvasc 5 mg daily. She has responded appropriately to medication and is now stable for discharge at this time. Patient to follow-up with Dr. Lanza in 2 weeks post left and right heart catheterization. She should follow with her primary care physician in 1-2 weeks. Patient was hospitalized here with chest pain. She previously been evaluated by a chick room supervisor as an outpatient who, from her description, had recommended that she undergo heart catheterization. She underwent cardiac catheterization here during this hospitalization demonstrating normal coronary arteries normal left ventricular systolic function and normal pressures. She requested a repeat pulmonary consultation, which was performed, demonstrating no acute abnormalities requiring further investigation. She was discharged with recommendations to follow up with her primary care physician and chick room supervisor. Diagnosis - Discharge Diagnosis (1) Abnormal weight loss Status: Acute (2) Atypical chest pain Status: Acute Specialty Discharge - Follow Up or Referrals Follow up with: Jair Roberson MD [Physician] - 1 Month Jose Lanza MD [Physician] - 2 Weeks (for leg check up ) Discharge Plan - Discharge Data Disposition: Disch To Home/Self Care - Discharge Medications New amLODIPine [Norvasc] 5 mg PO DAILY #30 tablet Continue Ranitidine Tab [Zantac Tab] 150 mg PO BEDTIME Valsartan/Hctz 160-12.5 [Diovan Hct 160-12.5] 1 tablet PO BEDTIME - Follow Up or Referral Follow Up: Jair Roberson MD [Physician] - 1 Month Jose Lanza MD [Physician] - 2 Weeks (for leg check up ) - Forms/Instructions Instructions: Heart Healthy Diet (GEN), Coronary Artery Disease in Women (GEN) Exam - Constitutional Vitals: Period Temp Pulse Resp BP Sys/Sweeney Pulse Ox Last 24 Hr 97.4 F-98.2 F 80-96 18-20 108-116/75-80 93-99 Discharge Results Procedures and tests throughout hospitalization: Pending Orders 12/01/16 08:30 CL heart Routine 12/03/16 5-HIAA 24 Hour Urine Routine 12/04/16 15:30 Aldolase Routine Thiamin (Vitamin B1), WB Routine Vitamin B6 Profile (PLP/PA), P Routine DS: Provider Date of admission: 11/29/16 18:13 Primary care physician: Blake Benavidez MD Attending physician on admission: Sudeep Dye MD Consults: 12/01/16 09:04 Consult to Cardiac Rehabilitation [CONS] Routine Reason for Cardiac Rehabilitation: Risk Factor Modification Other Consult Comment: Evaluate and recommend 12/03/16 09:26 Consult to Physician [CONS] Routine Comment: Dizziness Consulting Provider: Jair Roberson Person Notified: CLARA Date Notified: 12/04/16 Time Notified: 09:04 Consult Notification Comment: NEUROLOGY BYPASS THIS WEEKEND 12/05/16 11:08 Consult to Physician [CONS] Routine Comment: Dyspnea; normal cardiac cath Consulting Provider: Nas Brunson Consult to Specialist Group: Pulmonology When should Consulting Provider be notified: Now Person Notified: carrie Date Notified: 12/05/16 Time Notified: 14:46 Consult Notification Comment: left message on vm at 1136 left another message at 1402 CALL BACK AT 1421 Discharging clinician: Wesley Malcolm CNP
[2016-12-06 11:11] LABS: Aldolase 4.7 U/L (<7.7)
--- NOTE | 2016-12-06 12:15 | Pulmonology Progress Note ---
Pulmonary - PN: Subj Interval history: Ms. Alexander is a 45 year old black female that is a lifetime non-smoker and is actually been fairly healthy. She has a history of having hypertension and GE reflux with minimal pulmonary hypertension. She was previously evaluated for sleep apnea and only had primary snoring. She came in with 1 week of fatigue and the sensation of not being able to catch a deep breath. She has some vague chest pain. She has undergone a cardiac catheterization which was negative. She still has the sensation of not being able to catch a deep breath. She is never clearly had asthma but did try Symbicort one time. She says she had a fairly good night and seems to be breathing okay today. She will go for PFTs today. Her examination is unremarkable. She looks like she is feeling okay today. She does have a lot of anxiety. Exam (Progress Note) - Constitutional Vitals: Period Temp Pulse Resp BP Sys/Sweeney Pulse Ox Last 24 Hr 97.4 F-98.2 F 80-96 18-20 108-115/63-80 93-99 Exam: General appearance: no acute distress (She looks comfortable and healthy. She does not have any respiratory distress now.), over weight - Head Head exam: Present: normal inspection, normocephalic - Eye Eye exam: Present: EOMI. Absent: scleral icterus Pupils: Present: IVET - ENT ENT exam: Present: normal exam - Neck Neck exam: Present: normal inspection. Absent: lymphadenopathy, thyromegaly - Respiratory Respiratory exam: Present: clear to auscultation bilaterally. Absent: rhonchi, wheezes - Cardiovascular Cardiovascular exam: Present: regular rate and rhythm. Absent: gallop, JVD, systolic murmur - GI/Abdominal GI/Abdominal exam: Present: normal bowel sounds, soft. Absent: distended, organomegaly, tenderness - Extremities Exam Extremities exam: Absent: calf tenderness, edema - Back Exam Back exam: Present: normal inspection - Neurological Exam Neurological exam: Present: alert, oriented X3. Absent: motor sensory deficit - Psychiatric Psychiatric exam: Present: anxious - Skin Skin exam: Present: warm, dry. Absent: rash Results - Labs CBC & BMP: 12/05/16 06:13 12/05/16 06:13 Assessment and Plan (1) Dyspnea Status: Resolved Assessment and plan: The patient has shortness of breath on exertion and no obvious etiology. She may have had some asthmatic bronchitis in the past. Her lungs are clear today. Will check her PFTs today. Current Visit: No (2) Pulmonary hypertension Status: Chronic Assessment and plan: She had a recent heart cath with no evidence of significant pulmonary hypertension. Current Visit: Yes (3) Atypical chest pain Status: Acute Assessment and plan: She has had vague chest pain and negative cardiac catheterization . Current Visit: Yes (4) HTN (hypertension) Status: Acute Assessment and plan: Her blood pressure has been quite stable lately. She seems to be stable hemodynamically. Current Visit: Yes (5) Muscle tiredness Status: Acute Assessment and plan: She is being evaluated by neurology. I suspect much of her symptoms are related to anxiety. She looks like she feels okay today. Current Visit: Yes Specialty Discharge - Follow Up or Referrals Follow up with: Jair Roberson MD [Physician] - 1 Month Jose Lanza MD [Physician] - 2 Weeks (for leg check up )
[2016-12-06 16:32] VITALS: BP 119/70
[2016-12-06] MEDS ORDERED: ESCITALOPRAM 10 MG TABLET PO SCH (21:00)
[2016-12-09 08:51] LABS: 5-Hydroxyindoleacetic Acid, U 6.5 mg/24 h (<=8.0)
== END 2016-12-06 17:32 | disposition home or self-care (01) | DRG 880 ==
LOC: N.ED 15:11 → N.EDINP 15:11 → SUATTDRO 18:13 → OBSVTOIN 18:13 → N.5E 20:23
PROVIDERS: ADMIT Internal Medicine

== ENCOUNTER 2016-12-19 08:03 | Observation (INO) ==
[2016-12-19] MEDS ORDERED: VANCOMYCIN INJ 1,000 MG in SODIUM CHLORIDE 0.9% 250 ML IV STA (08:36)
[2016-12-19] MEDS ORDERED: VANCOMYCIN 1,000 MG VIAL ONE (08:41)
--- NOTE | 2016-12-19 08:49 | Emergency Department Note ---
Octavio Steinberg Gwan, am scribing for, and in the presence of, Dilan Romero MD 08:39 . Heather Steinberg James D, MD, personally performed the services described in this documentation, ascribed by Rosa Cunningham in my presence, and it is both accurate and complete 846 . Arrival - Arrival Chief Complaint: Extremity Problem Stated Complaint: puss at site of cath incision ED Nursing Triage Note: HEART CATH APPROX 3 WEEKS AGO, PT COMPLAINS OF A CLEAR DRAINAGE AND PAIN COMING FROM CATH SITE R GROIN, NOTICED THIS AM Mode of Arrival: Ambulatory Limitations: No Limitations Source: Patient, Old Records Reviewed, RN Notes Reviewed Time Seen by Provider: 12/19/16 08:30 - History of Present Illness HPI Narrative: Patient is a 45 y/o female, with a hx of heart cath, who presents to the ED with a c/o drainage and pain from cath site located in right groin area with an onset this morning. Patient confirmed that her heart cath was performed 3 weeks ago and it was performed by Dr. Lanza. She continued to note that she noticed a "knot" in cath site 3 days ago. She then said that this morning she assumed she was sweating but after further review, she realized that she had clear puss draining form site prompting her visit to the ED for further evaluation. Patient stated that she alerted Dr. Lanza office this morning and was told to report to ED. Her assoicated sxs have been chills but she denies having a fever. During exam, area was actively draining. No other problems/complaints reported in ED. Onset (ago): day(s) Consistency: constant Severity: moderate Allergies/Adverse Reactions: Allergies Allergy/AdvReac Type Severity Reaction Status Date / Time acetaminophen [From [place]] Allergy Unknown HIVES Verified 12/19/16 08:25 hydrocodone [From [place]] Allergy Unknown HIVES Verified 12/19/16 08:25 Penicillins Allergy Unknown HIVES Verified 12/19/16 08:25 Home Medications: Home Medications Medication Instructions Recorded Confirmed Type Ranitidine Tab [Zantac Tab] 150 mg PO BEDTIME 11/29/16 12/19/16 History Buspirone HCl [Buspirone HCl] 5 mg PO BID 12/16/16 12/19/16 History Escitalopram Oxalate [Lexapro] 5 mg PO BEDTIME 12/16/16 12/19/16 History amLODIPine [Norvasc] 5 mg PO BEDTIME 12/19/16 12/19/16 History Review of System - Review of System 12 point system: reviewed and no additional remarkable complaints except as stated - Review of System Constitutional: Present: as per HPI, chills. Absent: fever Gastrointestinal: Present: as per HPI, nausea. Absent: abdominal pain, vomiting , diarrhea Genitourinary female: Present: as per HPI, other (drainage from right groin area ) Medical,Surgical,& Family Hx - Medical History Cardio: History of: Cardiac Dysrhythmia, Hypertension, Cardiovascular Problems Psychological: No history of: Anxiety Disorders, ADHD, Behavior Problems, Bipolar Disorder, Depression, Previous Suicide Attempt, Psychiatric/Substance Abuse Tx, Schizophrenia, Violent Behavior, Psychiatric Problems Neurology: History of: Migraine Respiratory: History of: Pulmonary Hypertension Gastrointestinal: History of: Diverticulitis/ Diverticulosis, GERD - Surgical History Cardiac Surgeries: Sugical HX of: Cardiac Catheterization Neurologic Surgeries: Patient denies: Neurologic Surgery Abdominal Surgeries: Surgical HX of: Hernia Repair Reproductive Surgeries: Surgical HX of;: Hysterectomy (FULL) Orthopedic Surgeries: Surgical HX of;: Orthopedic Surgery (left knee surgery) - Family History Family History: Reports;: Family Cancer (MOTHER-OVARIAN), Family Diabetes ( GRANDMOTHER), Family Heart Disease (Mother), Family Hypertension (MOTHER, father , sister), Family Stroke (FATHER) - Social History Smoking Status: Never smoker Exam Physical Examination: GENERAL: This is a well-nourished, well-developed black female in no apparent distress. VITAL SIGNS: HEENT: Head is normocephalic and atraumatic. Pupils are equally round and reactive to light. Extraocular movement are intact. Oropharynx is benign with moist mucous membranes. NECK: Neck is soft and supple without tenderness. There are no masses. There is no lymphadenopathy. LUNGS: Lungs are clear to auscultation bilaterally. Chest rises symmetrically. There is no chest wall tenderness. CV: Heart is regular rate and rhythm without murmurs, rubs, or gallops. ABDOMEN: Abdomen is soft, non-tender to palpation. There are no abnormal masses palpated. There is no organomegaly. Bowel sounds are present and active. SKIN: Pustule present at the site of her previous cath in the right inguinal area. About 3-4 cc of purulent material were expressed. This was sent to the lab for culture. EXTREMITIES: Patient has full range of motion without tenderness. There is no pedal edema. NEUROLOGIC: Awake, alert, and oriented x4. Cranial nerves II through XII are grossly intact. There are no motorsensory deficits. PSYCHIATRIC: Normal affect. Normal mood. Vital Signs: Vital Signs Temperature 98.3 F 12/19/16 08:31 Pulse Rate 76 12/19/16 08:31 Respiratory Rate 18 12/19/16 08:31 Blood Pressure 150/92 12/19/16 08:31 O2 Sat by Pulse Oximetry 100 12/19/16 08:19 Course - Consultations Consultation #1: Discussed with cardiology. Patient will be seen in the emergency department by them and admitted to their service. Time: 08:58 Results - Labs CBC & BMP: 12/19/16 08:42 12/19/16 08:42 Lab Results: I have reviewed the patients labs - Diagnostic Findings Procedure: Ultrasound: report reviewed by me (Ultrasound of the right inguinal area shows a tract from a subcutaneous abscess to the skin. There is no evidence of pseudoaneurysm.) Disposition Clinical Impression: Abscess of right groin, Status post left heart catheterization Case discussed with: patient Disposition: Still a Patient Condition: Stable Time of Disposition: 08:55
[2016-12-19 09:06] LABS: Basophils % 0.4 % (0.0-0.8); Eosinophils # 0.1 10*3/uL (0.0-0.87); Eosinophils % 1.3 % (0.00-10.9); Hematocrit 37.4 VOL% (35.7-47.0); Hemoglobin 12.1 GM/DL (12.0-16.0); Immature Granulocytes % 0.2 %; Immature Granulocytes Absolute 0.01 #; Lymphocytes # 1.4 10*3/uL (1.4-4.0); Lymphocytes % 25.4 % (21.3-54.2); Mean Corpuscular HGB Conc 32.4 GM/DL (32-36); Mean Corpuscular Hemoglobin 27 PG (27-34); Mean Corpuscular Volume 82.4 FL (87-102); Mean Platelet Volume 10.3 FL (9.6-12.0); Monocytes # 0.3 10*3/uL (0.11-0.8); Monocytes % 5.6 % (1.7-12.7); Neutrophils # 3.7 10*3/uL (1.4-7.4); Neutrophils % 67.1 % (38.7-73.9); Platelet Count 262 T/CUMM (130-400); Red Blood Count 4.54 MC/CUMM (3.8-5.5); Red Cell Distribution Width 14.4 % (9.3-17.3); White Blood Count 5.5 T/CUMM (4-12)
[2016-12-19 09:40] LABS: Albumin 3.7 G/DL (3.4-5.0); Bilirubin,Total 0.5 MG/DL (0.2-1.0); Calcium 9.2 MG/DL (8.5-10.1); Osmolality,Calculated 279.3 MOS/KG (273-304); Potassium 4.2 MMOL/L (3.5-5.1); Total Protein 7.3 G/DL (6.4-8.3)
[2016-12-19] MEDS ORDERED: MORPHINE 2 MG/1 ML SYRINGE IV PRN (11:13)
[2016-12-19] MEDS ORDERED: MAGNESIUM SULF RIDER 2 GM in PREMIX 1 EACH IV PRN (11:13)
[2016-12-19] MEDS ORDERED: ZALEPLON 5 MG CAPSULE PO PRN (11:13)
[2016-12-19] MEDS ORDERED: DOCUSATE SODIUM 100 MG CAPSULE PO PRN (11:13)
[2016-12-19] MEDS ORDERED: MAGNESIUM SULF RIDER 4 GM in PREMIX 1 EACH IV PRN (11:13)
--- NOTE | 2016-12-19 11:23 | Cardiology History & Physical ---
<Patty Layton E - Last Filed: 12/19/16 15:53> Assessment and Plan - Time spent with patient Time spent with patient: Greater than 30 minutes (1) Abscess Status: Acute Assessment and plan: SEE PLAN OF CARE LISTED BELOW Current Visit: Yes (2) Hypertension Status: Chronic Assessment and plan: SEE PLAN OF CARE LISTED BELOW Current Visit: Yes (3) Dyspnea Status: Chronic Assessment and plan: SEE PLAN OF CARE LISTED BELOW Current Visit: No Qualifiers: Dyspnea type: unspecified Qualified Code(s): R06.00 - Dyspnea, unspecified (4) Pulmonary hypertension Status: Chronic Assessment and plan: SEE PLAN OF CARE LISTED BELOW Current Visit: No (5) HTN (hypertension) Status: Chronic Assessment and plan: SEE PLAN OF CARE LISTED BELOW Current Visit: No History of Present Illness Chief complaint: right groin pain and drainage History of present illness: PHP ENGINEER: DR. LANZA Patient is being seen in the emergency department. Ms. Alexander, 45BF, with past medical history to include: Hypertension, mild pulmonary hypertension. Patient underwent elective left and right cardiac catheterization, performed by Dr. Lanza, December 01, 2016 for evaluation of shortness of breath and chest pain. No CAD noted, mildly elevated pulmonary pressures. She tolerated the procedure well without complication and was discharged home in stable condition. Over this past weekend, began to experience a fullness and pain at the right groin access site. She returned to the ED, underwent arterial ultrasound which revealed small hematoma without pseudoaneurysm. She was discharged home to monitor, treat with cold compresses. This morning, patient felt as if she had a "wet" in the right groin area. She put her hand in the right groin and found it to have lots of drainage, white secretions. She came to the ED. Underwent ultrasound which reveals an abscess which is tracking. She does not have an elevated white count or left shift. Is afebrile without chills. She is being admitted to the medical surgical floor. Right groin drainage cultures have been obtained, blood cultures 2, urinalysis. After these were collected, IV vancomycin will be initiated. Dr. Mcbride has been consulted for evaluation and treatment. I have asked that she be placed on a monitored MedSur floor as the patient reports that she frequently has palpitations. It sounds as if she has had a fairly extensive workup in the past regarding her shortness of breath, palpitations with relatively benign findings. She was seeing Dr. Mac Torres in the past. Was actually recommended to undergo right heart catheterization at [facility] in 2014 and was unable to undergo this procedure therefore she underwent further exploration last month at [facility]. She denies a history of sleep apnea. Reports she was evaluated approximately 1 year ago and was told she did not have sleep apnea. She also reports that she has had palpitations for several years. At one point, she wore a Holter or event monitor but had no arrhythmias documented. She states she simply feels poorly and has for several years. Will continue to monitor her telemetry. She had an extensive outbreak/allergic reaction to the pads used when she wore her event monitor and therefore will avoid using outpatient. I will further discuss with Dr. Henriquez and await additional recommendations. IMPRESSION/PLAN: 1. RIGHT GROIN ABSCESS - IV Vancomycin has been initiated. Await cultures. Continue to follow CBC, labs and and vital signs. We have asked Dr. Mcbride to evaluate. 2. HYPERTENSION - usually well controlled. Will adjust medications accordingly during hospital stay 3. MILD PULMONARY HYPERTENSION - RHC results: PA pressures were 32/11 with a mean of 17. Wedge pressures 8mmHg. RAP 3mmHg. CO = 5.8L/min. No significant oxygen saturation step up from SVC to pulmonary artery noted. 4. SOB - may be a candidate for cardiopulmonary rehab. I believe she could benefit from structured workout regimen. Will ask case management to evaluate her to see if her insurance will cover this outpatient. 5. PALPITATIONS - monitor her telemetry while hospitalized. Home Medications Medication Instructions Recorded Confirmed Type Ranitidine Tab [Zantac Tab] 150 mg PO BEDTIME 11/29/16 12/19/16 History Buspirone HCl [Buspirone HCl] 5 mg PO BID 12/16/16 12/19/16 History Escitalopram Oxalate [Lexapro] 5 mg PO BEDTIME 12/16/16 12/19/16 History amLODIPine [Norvasc] 5 mg PO BEDTIME 12/19/16 12/19/16 History Allergies Allergy/AdvReac Type Severity Reaction Status Date / Time acetaminophen [From [place]] Allergy Unknown HIVES Verified 12/19/16 08:25 hydrocodone [From [place]] Allergy Unknown HIVES Verified 12/19/16 08:25 Penicillins Allergy Unknown HIVES Verified 12/19/16 08:25 Review of systems: REVIEW OF SYSTEMS: - Constitutional Constitutional: Present: Fatigue for several years. Absent: syncope, anorexia , night sweats - EENT Eyes: Absent: blurry vision, loss of vision, diplopia Ears: Absent: decreased hearing, ear pain, ear discharge - Cardiovascular Cardiovascular: Denies: chest pain with exertion. Chest pain is sharp and stabbing located in one particular area of the left breast occurring intermittently for several years denies edema. Frequent palpitations. Absent: chest pain with deep breath, claudication - Respiratory Respiratory: Present: [place], shortness of breath when speaking. Absent: wheezing , hemoptysis, change in phlegm color - Gastrointestinal Gastrointestinal: Denies: constipation. Absent: abdominal pain, hematemesis, hematochezia, melena, change in bowel habits, nausea - Genitourinary Genitourinary: Absent: difficulty urinating, dysuria, urinary hesitancy, flank pain - Musculoskeletal Musculoskeletal: Present: back pain Absent: joint swelling, muscle cramps, muscle weakness - Neurological Neurological: Present: normal gait without frequent falls. Absent: dizziness, hemiparesis - Psychiatric Psychiatric: Absent: anxiety, depression, difficulty concentrating - Endocrine Endocrine: Present: fatigue. Absent: cold intolerance, heat intolerance, polyuria, polyphagia, polydipsia - Hematologic/Lymphatic Hematologic/Lymphatic: Present: easy bruising. Absent: easy bleeding, easy bruisability -Integumentary Integumentary: Right groin pain and drainage. Absent: lesions, rashes, skin breakdown Medical,Surgical,& Family Hx - Medical History Cardio: History of: Hypertension, Cardiovascular Problems No history of: CAD, [place] Psychological: No history of: Anxiety Disorders, ADHD, Behavior Problems, Bipolar Disorder, Depression, Previous Suicide Attempt, Psychiatric/Substance Abuse Tx, Schizophrenia, Violent Behavior, Psychiatric Problems Neurology: History of: Migraine Respiratory: History of: Pulmonary Hypertension Gastrointestinal: History of: Diverticulitis/ Diverticulosis, GERD - Surgical History Cardiac Surgeries: Sugical HX of: Cardiac Catheterization Neurologic Surgeries: Patient denies: Neurologic Surgery Abdominal Surgeries: Surgical HX of: Hernia Repair Reproductive Surgeries: Surgical HX of;: Hysterectomy (FULL) Orthopedic Surgeries: Surgical HX of;: Orthopedic Surgery (left knee surgery) - Family History Family History: Reports;: Family Cancer (MOTHER-OVARIAN), Family Diabetes ( GRANDMOTHER), Family Heart Disease (Mother), Family Hypertension (MOTHER, father , sister), Family Stroke (FATHER) - Social History Smoking Status: Never smoker Have you smoked in the last 12 months: No Frequency of Alcohol Use: None Type of Drug Use: None Marital Status: Lives With:: Alone Functional capacity: independent ambulation Cardiology Physical Exam - Constitutional Vitals: Vital Signs Temp Pulse Resp BP Pulse Ox 98.3 F 76 18 150/92 100 12/19/16 08:31 12/19/16 08:31 12/19/16 08:31 12/19/16 08:31 12/19/16 08:19 Intake and Output 12/18/16 12/19/16 12/19/16 23:59 07:59 15:59 Other: Weight 97.069 kg Patient Weight 12/19/16 23:59 Weight 97.069 kg Exam: General: [Appears well with no apparent distress.] [Pleasant and cooperative. ] [Appears comfortable.] HEENT: [PERRL, normocephalic, atraumatic. Mucous membranes moist. No jaundice noted. Conjunctiva moist and clear, sclerae anicteric] Neck: No obvious JVD/HJR, no thyromegaly or lymphadenopathy noted. Cardiac: [Regular rate and rhythm.] [No murmur, rub or gallop.] Lungs: [Clear to auscultation without accessory muscle use to assist the respiratory pattern.] Not requiring oxygen Abdomen: Soft, bowel sounds normoactive. Nontender and nondistended. No abdominal bruit or thrill noted. No masses noted. Musculoskeletal: No fluid collection. Decreased range of motion is noted. Extremities: No clubbing, cyanosis noted. [ No edema noted.] Upper extremity pulses 2+. Lower extremity pulses 2+. Capillary refill less than 3 seconds. Skin: Right groin tender to touch, warm. Small amount of serosanguineous drainage expressed. No unusual lesions or rashes. No skin breakdown appreciated. Neuro: Awake, alert and oriented 3. Moves all extremities well without hemiparesis or paralysis. No essential tremor is appreciated. Result/EKG - Labs CBC & BMP: 12/19/16 08:42 12/19/16 08:42 Lab Results: I have reviewed the past 24 hour labs Labs: Laboratory Results - last 24 hr 12/19/16 12/19/16 08:42 08:42 WBC 5.5 RBC 4.54 Hgb 12.1 Hct 37.4 MCV 82.4 L MCH 27 MCHC 32.4 RDW 14.4 Plt Count 262 MPV 10.3 Neut % (Auto) 67.1 Lymph % (Auto) 25.4 [place] % (Auto) 5.6 Eos % (Auto) 1.3 Baso % (Auto) 0.4 Neut # (Auto) 3.7 Lymph # (Auto) 1.4 [place] # (Auto) 0.3 Eos # (Auto) 0.1 Baso # (Auto) 0.0 Immature Gran % 0.2 Nucleated RBC % 0.0 Immature Gran # 0.01 Nucleated RBCs # 0.00 Immature Plt Fraction 0.0 Sodium 141 Potassium 4.2 Chloride 106 Carbon Dioxide 30 Anion Gap 9.2 BUN 10 Creatinine 0.80 GFR Calculation 123 BUN/Creatinine Ratio 12.00 Glucose 91 Calculated Osmolality 279.3 Calcium 9.2 Total Bilirubin 0.50 AST 11 ALT 17 Alkaline Phosphatase 94 Total Protein 7.3 Albumin 3.7 Globulin 3.6 H Albumin/Globulin Ratio 1.0 L - Diagnostic Findings Procedure: Chest x-ray: report reviewed by me, Ultrasound: report reviewed by me - EKG EKG results: interpreted by me EKG shows: sinus rhythm Quality Measures - Stroke Presenting Symptoms: Broca's dysphasia <Vidya Henriquez - Last Filed: 12/19/16 19:17> History of Present Illness History of present illness: I have personally interviewed and evaluated the patient, reviewed the chart and discussed medical decision-making with Practitioner Calin. I have read this note and agree with her documentation here in. I do not palpate a circumscribed mass or induration at the groin site, but I am able to express a small amount of purulent drainage. No fever or leukocytosis. Cardiology Physical Exam - Constitutional Vitals: Vital Signs Temp Pulse Resp BP Pulse Ox 99.1 F 74 20 119/80 95 12/19/16 15:40 12/19/16 15:40 12/19/16 15:40 12/19/16 15:40 12/19/16 15:40 Intake and Output 12/19/16 12/19/16 12/19/16 07:59 15:59 23:59 Intake Total 250 / 250 Balance 250 / 250 Intake: IV 250 / 250 Vancomycin Inj 1,000 mg 250 / 250 In Ns 250 ml @ 250 mls/hr IV 1X ED STA Rx#: [id number] Other: Weight 97.069 kg 97.341 kg Patient Weight 12/19/16 23:59 Weight 97.341 kg Result/EKG - Labs CBC & BMP: 12/19/16 17:06 12/19/16 17:06 Labs: Laboratory Results - last 24 hr 12/19/16 12/19/16 12/19/16 08:42 08:42 17:06 WBC 5.5 6.9 RBC 4.54 4.25 Hgb 12.1 11.4 L Hct 37.4 34.5 L MCV 82.4 L 81.2 L MCH 27 27 MCHC 32.4 33.0 RDW 14.4 14.3 Plt Count 262 251 MPV 10.3 10.6 Neut % (Auto) 67.1 61.8 Lymph % (Auto) 25.4 30.0 [place] % (Auto) 5.6 6.1 Eos % (Auto) 1.3 1.4 Baso % (Auto) 0.4 0.4 Neut # (Auto) 3.7 4.3 Lymph # (Auto) 1.4 2.1 [place] # (Auto) 0.3 0.4 Eos # (Auto) 0.1 0.1 Baso # (Auto) 0.0 0.0 Immature Gran % 0.2 0.3 Nucleated RBC % 0.0 0.0 Immature Gran # 0.01 0.02 Nucleated RBCs # 0.00 0.00 Immature Plt Fraction 0.0 0.0 Sodium 141 Potassium 4.2 Chloride 106 Carbon Dioxide 30 Anion Gap 9.2 BUN 10 Creatinine 0.80 GFR Calculation 123 BUN/Creatinine Ratio 12.00 Glucose 91 Calculated Osmolality 279.3 Calcium 9.2 Magnesium Total Bilirubin 0.50 AST 11 ALT 17 Alkaline Phosphatase 94 Total Protein 7.3 Albumin 3.7 Globulin 3.6 H Albumin/Globulin Ratio 1.0 L 12/19/16 17:06 WBC RBC Hgb Hct MCV MCH MCHC RDW Plt Count MPV Neut % (Auto) Lymph % (Auto) [place] % (Auto) Eos % (Auto) Baso % (Auto) Neut # (Auto) Lymph # (Auto) [place] # (Auto) Eos # (Auto) Baso # (Auto) Immature Gran % Nucleated RBC % Immature Gran # Nucleated RBCs # Immature Plt Fraction Sodium 141 Potassium 3.9 Chloride 106 Carbon Dioxide 32 Anion Gap 6.9 BUN 9 Creatinine 0.80 GFR Calculation 123 BUN/Creatinine Ratio 11.00 Glucose 88 Calculated Osmolality 278.3 Calcium 8.9 Magnesium 2.1 Total Bilirubin AST ALT Alkaline Phosphatase Total Protein Albumin Globulin Albumin/Globulin Ratio
--- NOTE | 2016-12-19 11:28 | Ultrasound Report ---
US pseudo aneurysm repair RT Clinical Information: purulent drainage from cath site in R groin Comparison: None available. Technique: Targeted ultrasound evaluation of the right groin was performed with grayscale color Doppler spectral analysis of the vasculature. Findings: There is minimal irregularity in the soft tissues of the right groin. There is no significant color Doppler blood flow within this area of hypodensity which measures up to 0.5 x 0.5 x 0.7 cm maximum dimension. This area of hypoechogenicity may contain purulent material with possible sinus tract to the skin surface suggested. There is no definite communication to the vasculature. Common femoral artery is widely patent with normal triphasic waveform and no evidence of pseudoaneurysm. Common femoral vein is patent with compressibility and normal phasicity on spectral analysis. There is no evidence of arterial venous fistula. Impression: No evidence of pseudoaneurysm or arteriovenous fistula. Widely patent common femoral artery and vein. Punctate area of hypoechogenicity within the groin soft tissues with possible sinus tract to the skin surface may represent a tiny subcutaneous abscess measuring up to 0.7 cm maximum dimension. This is too small for percutaneous drainage. PROCEDURE INTERPRETED AT [facility] DEPARTMENT OF RADIOLOGY Final Report Signed by: Barak Nunez
[2016-12-19] MEDS: SODIUM CHLORIDE 0.45% 1,000 ML IV SCH (16:09)
--- NOTE | 2016-12-19 16:58 | Vascular Surgery Consult Note ---
History of Present Illness Chief complaint: possible groin hematoma/infection History of present illness: Ms. Alexander is a 45 year old female Yessenia Catherine 45-year-old woman underwent right groin access cardiac catheterization approximately 3 weeks ago she noted discomfort in the right groin and leg over the weekend then noted a mass and was seen in the emergency room with no specific findings on ultrasound was done that suggested a small fluid collection possible hematoma but not possible tract to the surface this morning when she awakened she noted drainage in the area that she describes as somewhat of a clear and creamy material she has not had fever or chills to her knowledge in the leg actually feels much better today she is noted to have no white blood count and normal flow and perfusion of the lower leg. On examination there is no hematoma false aneurysm or cellulitis or induration. There is a clean puncture site but no ongoing drainage at this point time. My suspicion is that this was a small lymphocele that has drained spontaneously. There is minimal if any evidence of active infection so I do not know that antibiotic but treatment would be of value basically I would allow it to drain itself and this may be all that is required. I did discuss with Ms. Alexander what I believe we are dealing with and what treatment is needed and what to expect they understand and agreed we should watch her overnight but if she has no further drainage or difficulty she would probably be safe to be discharged home tomorrow Home Medications Medication Instructions Recorded Confirmed Type Ranitidine Tab [Zantac Tab] 150 mg PO BEDTIME 11/29/16 12/19/16 History Buspirone HCl [Buspirone HCl] 5 mg PO BID 12/16/16 12/19/16 History Escitalopram Oxalate [Lexapro] 5 mg PO BEDTIME 12/16/16 12/19/16 History amLODIPine [Norvasc] 5 mg PO BEDTIME 12/19/16 12/19/16 History Allergies Allergy/AdvReac Type Severity Reaction Status Date / Time acetaminophen [From [place]] Allergy Unknown HIVES Verified 12/19/16 08:25 hydrocodone [From [place]] Allergy Unknown HIVES Verified 12/19/16 08:25 Penicillins Allergy Unknown HIVES Verified 12/19/16 08:25 Medical,Surgical,& Family Hx - Medical History Cardio: History of: Cardiac Dysrhythmia, Hypertension, Cardiovascular Problems No history of: CAD, [place] Psychological: No history of: Anxiety Disorders, ADHD, Behavior Problems, Bipolar Disorder, Depression, Previous Suicide Attempt, Psychiatric/Substance Abuse Tx, Schizophrenia, Violent Behavior, Psychiatric Problems Neurology: History of: Migraine Respiratory: History of: Pulmonary Hypertension Gastrointestinal: History of: Diverticulitis/ Diverticulosis, GERD - Surgical History Cardiac Surgeries: Sugical HX of: Cardiac Catheterization Neurologic Surgeries: Patient denies: Neurologic Surgery Abdominal Surgeries: Surgical HX of: Hernia Repair Reproductive Surgeries: Surgical HX of;: Hysterectomy (FULL) Orthopedic Surgeries: Surgical HX of;: Orthopedic Surgery (left knee surgery) - Family History Family History: Reports;: Family Cancer (MOTHER-OVARIAN), Family Diabetes ( GRANDMOTHER), Family Heart Disease (Mother), Family Hypertension (MOTHER, father , sister), Family Stroke (FATHER) - Social History Smoking Status: Never smoker Frequency of Alcohol Use: None Type of Drug Use: None Exam - Constitutional Vitals: Period Temp Pulse Resp BP Sys/Sweeney Pulse Ox Last 24 Hr 98.3 F-99.1 F 74-76 18-20 119-150/80-92 95-100 Quality Measures - Stroke Presenting Symptoms: Broca's dysphasia Results - Labs CBC & BMP: 12/19/16 08:42 12/19/16 08:42
[2016-12-19] MEDS: ENOXAPARIN 40 MG/0.4 ML SYRINGE SUBCUT SCH (17:48)
[2016-12-19 18:01] LABS: Basophils % 0.4 % (0.0-0.8); Eosinophils # 0.1 10*3/uL (0.0-0.87); Eosinophils % 1.4 % (0.00-10.9); Hematocrit 34.5 VOL% (35.7-47.0); Hemoglobin 11.4 GM/DL (12.0-16.0); Immature Granulocytes % 0.3 %; Immature Granulocytes Absolute 0.02 #; Lymphocytes # 2.1 10*3/uL (1.4-4.0); Mean Corpuscular Hemoglobin 27 PG (27-34); Mean Corpuscular Volume 81.2 FL (87-102); Mean Platelet Volume 10.6 FL (9.6-12.0); Monocytes # 0.4 10*3/uL (0.11-0.8); Monocytes % 6.1 % (1.7-12.7); Neutrophils # 4.3 10*3/uL (1.4-7.4); Neutrophils % 61.8 % (38.7-73.9); Platelet Count 251 T/CUMM (130-400); Red Blood Count 4.25 MC/CUMM (3.8-5.5); Red Cell Distribution Width 14.3 % (9.3-17.3); White Blood Count 6.9 T/CUMM (4-12)
[2016-12-19 18:16] LABS: Calcium 8.9 MG/DL (8.5-10.1); Magnesium 2.1 MG/DL (1.8-2.4); Osmolality,Calculated 278.3 MOS/KG (273-304); Potassium 3.9 MMOL/L (3.5-5.1)
[2016-12-19] MEDS: VANCOMYCIN INJ 1,000 MG in SODIUM CHLORIDE 0.9% 250 ML IV SCH (21:56)
[2016-12-20] MEDS: SODIUM CHLORIDE 0.45% 1,000 ML IV SCH ×3 (02:13→11:47)
[2016-12-20 06:18] LABS: Basophils % 0.4 % (0.0-0.8); Eosinophils # 0.1 10*3/uL (0.0-0.87); Eosinophils % 2.1 % (0.00-10.9); Hematocrit 33.2 VOL% (35.7-47.0); Hemoglobin 10.7 GM/DL (12.0-16.0); Immature Granulocytes % 0.2 %; Immature Granulocytes Absolute 0.01 #; Lymphocytes # 1.6 10*3/uL (1.4-4.0); Lymphocytes % 33.6 % (21.3-54.2); Mean Corpuscular HGB Conc 32.2 GM/DL (32-36); Mean Corpuscular Hemoglobin 26 PG (27-34); Mean Corpuscular Volume 81.8 FL (87-102); Mean Platelet Volume 10.7 FL (9.6-12.0); Monocytes # 0.3 10*3/uL (0.11-0.8); Monocytes % 6.2 % (1.7-12.7); Neutrophils # 2.7 10*3/uL (1.4-7.4); Neutrophils % 57.5 % (38.7-73.9); Platelet Count 225 T/CUMM (130-400); Red Blood Count 4.06 MC/CUMM (3.8-5.5); Red Cell Distribution Width 14.2 % (9.3-17.3); White Blood Count 4.7 T/CUMM (4-12)
[2016-12-20 06:54] LABS: Calcium 8.5 MG/DL (8.5-10.1); Magnesium 2.1 MG/DL (1.8-2.4); Osmolality,Calculated 281.1 MOS/KG (273-304); Potassium 4.1 MMOL/L (3.5-5.1)
[2016-12-20 06:59] LABS: Albumin 3.1 G/DL (3.4-5.0); Bilirubin,Total 0.6 MG/DL (0.2-1.0); Calcium 8.4 MG/DL (8.5-10.1); Osmolality,Calculated 279.3 MOS/KG (273-304); Potassium 4.1 MMOL/L (3.5-5.1); Total Protein 5.6 G/DL (6.4-8.3)
[2016-12-20] MEDS ORDERED: PANTOPRAZOLE 40 MG TABLET PO SCH (09:00)
[2016-12-20] MEDS: VANCOMYCIN INJ 1,000 MG in SODIUM CHLORIDE 0.9% 250 ML IV SCH (09:29)
--- NOTE | 2016-12-20 09:43 | Event Note ---
Doing okay. May be discharged this afternoon. Ambulate. Monitor groin. Will re-evaluate this afternoon.
--- NOTE | 2016-12-20 11:08 | Event Note ---
Ms. Alexander is doing well today she is afebrile her leg looks good and there is no sign of induration or erythema she has minimal clear fluid from the site. My impression remains that this was a modest lymphocele that has drained spontaneously and has minimal of any active infection. This should respond to a relative decrease in her activities with the staying in a house for a few days until the drainage stops I do not know that a long-term IV and p.o. antibiotic is indicated
[2016-12-20] MEDS: ENOXAPARIN 40 MG/0.4 ML SYRINGE SUBCUT SCH (11:44)
[2016-12-20 12:36] LABS: Apearance,Urine CLEAR (Clear); Bacteria,Urine Occasional /HPF (Few); Bilirubin,Urine Negative (Negative); Blood, Urine Negative (Negative); Glucose,Urine (UA) Negative (Negative); Ketones,Urine Negative (Negative); Mucus,Urine Occasional /LPF (Occasional); Nitrite,Urine Negative (Negative); Protein,Urine Negative; RBC,Urine <1 /HPF (0-4); Squamous Epithelial Cell,Urine Occasional /HPF (0-10); Urine Color Straw (Yellow); Urine Specific Gravity 1.005 (1.001-1.035); Urine Urobilinogen < 2.0 EU/DL (0.2-1.0); WBC,Urine <1 /HPF (0-6)
[2016-12-20] MEDS ORDERED: FLUCONAZOLE 200 MG TABLET PO ONE (13:14)
[2016-12-20] MEDS ORDERED: SULFAMETHOX/TRIMETHOPRIM 800-160 MG TABLET PO SCH (13:30)
--- NOTE | 2016-12-20 14:33 | Discharge Summary ---
Hospital Course - Hospital Course Hospital Course: CARDIOLOGY ASSOCIATE: DR. LANZA I have personally interviewed and evaluated the patient, reviewed the chart and discussed medical decision-making with Practitioner Calin. I have read this note and agree with her documentation here in. SUMMARY: Ms. Alexander, 45BF, with past medical history to include: Hypertension, mild pulmonary hypertension. Patient underwent elective left and right cardiac catheterization, performed by Dr. Lanza, December 01, 2016 for evaluation of shortness of breath and chest pain. No CAD noted, mildly elevated pulmonary pressures. She tolerated the procedure well without complication and was discharged home in stable condition. Over the weekend prior to admission she began to experience a fullness and pain at the right groin access site. She returned to the ED, underwent arterial ultrasound which revealed small hematoma without pseudoaneurysm. She was discharged home to monitor, treat with cold compresses. December 19, 2016 patient felt as if she had a "wet" in the right groin area. She put her hand in the right groin and found it to have lots of drainage, white secretions. She came to the ED. Underwent ultrasound which reveals a possible abscess/hematoma. She was afebrile without leukocytosis. Dr. Mcbride was consulted. Dr. Mcbride believes this was a modest lymphocele that had drained spontaneously and has a minimal, if any, active infection. She was given 2 doses of IV Vancomycin and will be discharged home with Bactrim DS 800 - 160mg p.o. twice daily 14 days. Patient has been ambulating without difficulty. Patient is anxious for release home and she will be given the Bactrim today as well as 1 dose of Diflucan. She is to watch her right groin site and should she experience any additional thick or purulent drainage (clear drainage is expected), fever or chills please contact our office. She will be given a follow-up appoint with Dr. Lanza and 1 week. At that visit the following will be obtained: CBC. - Time spent with patient Time with patient DS: Greater than 30 minutes Diagnosis - Discharge Diagnosis (1) Abscess Status: Resolved (2) Hypertension Status: Chronic (3) Dyspnea Status: Chronic (4) Pulmonary hypertension Status: Chronic (5) HTN (hypertension) Status: Chronic (6) Lymphocele after surgical procedure Status: Acute Specialty Discharge - Follow Up or Referrals Follow up with: Jose Lanza MD [Physician] - 1 Week ([facility]) Discharge Plan - Discharge Data Disposition: Disch To Home/Self Care Condition at Discharge: Stable Discharge Diet: heart healthy Activity: resume usual activities as tolerated Hygiene: no restrictions Weight Bearing at Discharge: full weight bearing Driving: no restrictions Contact your physician if you experience:: fever over 101, Difficulty voiding, Redness or swelling, Nausea/Vomiting, Shortness of breath, Bleeding, pain uncontrolled by pain medications - Discharge Medications New Sulfameth/Trimeth 800-160 Tab [Bactrim DS Tab] 1 tablet PO BID #28 tablet Continue Ranitidine Tab [Zantac Tab] 150 mg PO BEDTIME Escitalopram Oxalate [Lexapro] 5 mg PO BEDTIME amLODIPine [Norvasc] 5 mg PO BEDTIME Buspirone HCl 5 mg PO BID - Follow Up or Referral Follow Up: Jose Lanza MD [Physician] - 1 Week ([facility]) - Forms/Instructions Exam - Constitutional Vitals: Period Temp Pulse Resp BP Sys/Sweeney Pulse Ox Last 24 Hr 97.5 F-99.1 F 71-95 18-20 111-137/62-88 95-99 Exam: General: [Appears well with no apparent distress.] [Pleasant and cooperative. ] [Appears comfortable.] HEENT: [PERRL, normocephalic, atraumatic. Mucous membranes moist. No jaundice noted. Conjunctiva moist and clear, sclerae anicteric] Neck: No JVD/HJR, no thyromegaly or lymphadenopathy noted. No carotid bruit appreciated Cardiac: [Regular rate and rhythm.] [No murmur, rub or gallop.] Lungs: [Clear to auscultation without accessory muscle use to assist the respiratory pattern.] Not requiring oxygen Abdomen: Soft, bowel sounds normoactive. Nontender and nondistended. No abdominal bruit or thrill noted. No masses noted. Musculoskeletal: No fluid collection. Decreased range of motion is noted. Extremities: Right groin is soft, free of hematoma or bruit. No drainage noted at this time. No clubbing, cyanosis noted. [ No edema noted.] Upper extremity pulses 2+. Lower extremity pulses 2+. Capillary refill less than 3 seconds. Skin: No unusual lesions or rashes. No skin breakdown appreciated. Neuro: Awake, alert and oriented 3. Moves all extremities well without hemiparesis or paralysis. No essential tremor is appreciated. Discharge Results Procedures and tests throughout hospitalization: Pending Orders 12/19/16 08:36 Wound Culture Stat 12/19/16 08:51 Blood Culture Stat 12/21/16 04:00 BMP w/ Mg [Basic Metabolic Panel w/Mg] IN AM 12/22/16 04:00 BMP w/ Mg [Basic Metabolic Panel w/Mg] IN AM Labs on day of discharge: Labs from last 24 hours 12/20/16 12/20/16 12/20/16 11:49 05:22 05:22 WBC 4.7 D RBC 4.06 Hgb 10.7 L Hct 33.2 L MCV 81.8 L MCH 26 L MCHC 32.2 RDW 14.2 Plt Count 225 MPV 10.7 Neut % (Auto) 57.5 Lymph % (Auto) 33.6 [place] % (Auto) 6.2 Eos % (Auto) 2.1 Baso % (Auto) 0.4 Neut # (Auto) 2.7 Lymph # (Auto) 1.6 [place] # (Auto) 0.3 Eos # (Auto) 0.1 Baso # (Auto) 0.0 Immature Gran % 0.2 Nucleated RBC % 0.0 Immature Gran # 0.01 Nucleated RBCs # 0.00 Immature Plt Fraction 0.0 Sodium 141 Potassium 4.1 Chloride 106 Carbon Dioxide 30 Anion Gap 9.1 BUN 10 Creatinine 0.80 GFR Calculation 123 BUN/Creatinine Ratio 12.00 Glucose 91 Calculated Osmolality 279.3 Calcium 8.4 L Magnesium Total Bilirubin 0.60 AST 10 ALT 16 Alkaline Phosphatase 73 Total Protein 5.6 L Albumin 3.1 L Globulin 2.5 Albumin/Globulin Ratio 1.2 Urine Color Straw Urine Appearance Clear Urine pH 5.0 Ur Specific [place] 1.005 Urine Protein Negative Urine Glucose (UA) Negative Urine Ketones Negative Urine Blood Negative Urine Nitrate Negative Urine Bilirubin Negative Urine Urobilinogen < 2.0 H Urine Leukocytes Negative Urine RBC <1 Urine WBC <1 Ur Squamous Epith Cells Occasional Urine Bacteria Occasional Urine Mucus Occasional Ur Culture Indicated? Not indicated 12/20/16 12/19/16 12/19/16 05:22 17:06 17:06 WBC 6.9 RBC 4.25 Hgb 11.4 L Hct 34.5 L MCV 81.2 L MCH 27 MCHC 33.0 RDW 14.3 Plt Count 251 MPV 10.6 Neut % (Auto) 61.8 Lymph % (Auto) 30.0 [place] % (Auto) 6.1 Eos % (Auto) 1.4 Baso % (Auto) 0.4 Neut # (Auto) 4.3 Lymph # (Auto) 2.1 [place] # (Auto) 0.4 Eos # (Auto) 0.1 Baso # (Auto) 0.0 Immature Gran % 0.3 Nucleated RBC % 0.0 Immature Gran # 0.02 Nucleated RBCs # 0.00 Immature Plt Fraction 0.0 Sodium 142 141 Potassium 4.1 3.9 Chloride 106 106 Carbon Dioxide 31 32 Anion Gap 9.1 6.9 BUN 10 9 Creatinine 0.80 0.80 GFR Calculation 123 123 BUN/Creatinine Ratio 12.00 11.00 Glucose 95 88 Calculated Osmolality 281.1 278.3 Calcium 8.5 8.9 Magnesium 2.1 2.1 Total Bilirubin AST ALT Alkaline Phosphatase Total Protein Albumin Globulin Albumin/Globulin Ratio Urine Color Urine Appearance Urine pH Ur Specific [place] Urine Protein Urine Glucose (UA) Urine Ketones Urine Blood Urine Nitrate Urine Bilirubin Urine Urobilinogen Urine Leukocytes Urine RBC Urine WBC Ur Squamous Epith Cells Urine Bacteria Urine Mucus Ur Culture Indicated? Preliminary micro results at discharge 12/19/16 08:36 Wound Culture - Preliminary Groin - Right No growth at 24 hours 12/19/16 08:51 Blood Culture - Preliminary Blood No growth at 1 day 12/19/16 09:03 Blood Culture - Preliminary Blood No growth at 1 day - Imaging and Cardiology Cardiology Procedure: report reviewed by me Procedure: Ultrasound: report reviewed by me DS: Provider Date of admission: 12/19/16 11:13 Primary care physician: Blake Benavidez MD Attending physician on admission: Vidya Henriquez, Consults: 12/19/16 11:19 Consult to Physician [CONS] Routine Comment: right groin abcess post cath Consulting Provider: Harsha Mcbride Consulting Provider Notified: Yes When should Consulting Provider be notified: Now Person Notified: vidya bustillo Date Notified: 12/19/16 Time Notified: 15:40 12/19/16 16:13 Consult to Case Mgmt/Social Srvs [CONS] Routine Reason for Case Mgmt/Social Srvs: Other Consult Comment: Insurance cover outpatient cardiopulm rehab? 12/19/16 16:28 Consult to Pastoral Services [CONS] Routine Comment: Pastoral Screen: Request Marketing Officer Visit Pastoral Screen Source of Request: Patient Discharging clinician: Patty Layton NP Expected date of discharge: 12/20/16
[2016-12-20 17:19] VITALS: BP 124/69
== END 2016-12-20 17:12 | disposition home or self-care (01) ==
LOC: N.EDINP 08:03 → N.ED 08:03 → N.EDINP 15:18 → N.3E 15:32
PROVIDERS: ADMIT Internal Medicine Cardiovascular Disease; ATTEND Internal Medicine Cardiovascular Disease